=== PATIENT | male | born 1960 | race Caucasian/White ===

== ENCOUNTER 2018-05-08 16:22 | Emergency (ER) | payer BC ==
[2018-05-08 16:48] VITALS: BP 105/83
[2018-05-08] MEDS ORDERED: Sodium Chloride 0.9% 10 ML Syringe FLUSH PRN (17:03)
[2018-05-08] MEDS ORDERED: Diltiazem 50 MG/10 ML SDV IVPUSH ONE (17:03)
--- NOTE | 2018-05-08 17:11 | EDM.PDOC ---
ED HPI GENERAL MEDICAL PROBLEM - General Chief Complaint: Cardiovascular Problem Stated Complaint: AFIB Time Seen by Provider: 05/08/18 16:46 Source of Information: Reports: Patient, RN Notes Reviewed - History of Present Illness INITIAL COMMENTS - FREE TEXT/NARRATIVE: 57-year-old male comes in with symptoms of palpitations, nonspecific dizziness. Tear chest feels very mildly tight. Had this off and on but mostly present for the last 2 days. Family finally convinced him to come in. He has had atrial fib in the past. He has been on metoprolol in addition to his other medications. He also has been on flecainide and his states dosage was recently increased from 100 mg twice a day to 150 mg twice a day. No abdominal pain nausea vomiting. No cough shortness of breath fever or chills. - Related Data Allergies Allergy/AdvReac Type Severity Reaction Status Date / Time No Known Allergies Allergy Verified 11/30/14 10:21 Home Meds: Home Meds Losartan/Hydrochlorothiazide [Losartan-HCTZ 100-25 MG] 25 - 100 mg PO DAILY@ 199911/30/14 [History] atorvaSTATin [Lipitor] 40 mg PO BEDTIME 11/30/14 [History] Burdock Root 1 cap PO DAILY 05/08/18 [History] Cholecalciferol (Vitamin D3) [Vitamin D3] 1,000 unit PO DAILY 05/08/18 [History] Flecainide [Tambocor] 100 mg PO BID 05/08/18 [History] Metoprolol Succinate [Toprol XL] 50 mg PO DAILY 05/08/18 [History] Multivitamin [Daily Brenda] 1 tab PO DAILY 05/08/18 [History] Ranitidine HCl [Ranitidine] 300 mg PO DAILY 05/08/18 [History] Past Medical History Cardiovascular History: Reports: Afib Other Respiratory History: pt uses C-pap - Past Surgical History Other Respiratory Surgeries/Procedures: per pt had steel plate placed in the neck 2004 Social & Family History - Tobacco Use Smoking Status *Q: Never Smoker Second Hand Smoke Exposure: No - Caffeine Use Caffeine Use: Reports: Coffee, Soda - Recreational Drug Use Recreational Drug Use: No ED ROS GENERAL - Review of Systems Review Of Systems: See Below Constitutional: Denies: Fever, Chills, Diaphoresis HEENT: Denies: Rhinitis, Sinus Problem, Throat Pain Respiratory: Reports: Cough. Denies: Shortness of Breath, Wheezing, Pleuritic Chest Pain Cardiovascular: Reports: Lightheadedness, Palpitations. Denies: Chest Pain ( Occasional), Syncope (Occasional mild) Endocrine: Reports: Fatigue GI/Abdominal: Denies: Abdominal Pain, Nausea, Vomiting Musculoskeletal: Denies: Neck Pain, Shoulder Pain, Arm Pain Skin: Reports: No Symptoms Neurological: Reports: Dizziness ED EXAM, GENERAL - Physical Exam Exam: See Below General Appearance: Alert, No Apparent Distress Eye Exam: Bilateral Eye: PERRL Throat/Mouth: Normal Inspection, Normal Oropharynx Head: Atraumatic Neck: Supple, Full Range of Motion Respiratory/Chest: No Respiratory Distress, Lungs Clear, Normal Breath Sounds. No: Rales, Rhonchi, Wheezing Cardiovascular: Tachycardia, Irregularly Irregular GI/Abdominal: Soft, Non-Tender Back Exam: No: CVA Tenderness (L), CVA Tenderness (R) Extremities: Normal Inspection. No: Pedal Edema, Leg Pain, Increased Warmth, Redness Neurological: Alert, Oriented, No Motor/Sensory Deficits Skin Exam: Warm, Dry EKG INTERPRETATION EKG Date: 05/08/18 Rhythm: A-Flutter [place]: Normal QRS: Normal ST-T: Depressed Course - Vital Signs Last Recorded V/S: Last Vital Signs Temp 97.9 F 05/08/18 16:41 Pulse 131 H 05/08/18 16:41 Resp 18 05/08/18 16:41 BP 105/83 05/08/18 16:41 Pulse Ox 96 05/08/18 16:41 - Orders/Labs/Meds Orders: Active Orders 24 hr Category Date Time Status EKG 12 Lead [EKG Documentation Completion] [RC] STAT Care 05/08/18 17:02 Active Peripheral IV Care [RC] . DIRECTED Care 05/08/18 17:03 Active Chest 1V Frontal [CR] Stat Exams 05/08/18 17:02 Taken Sodium Chloride 0.9% [Saline Flush] Med 05/08/18 17:03 Active 10 ml FLUSH ASDIRECTED PRN Peripheral IV Insertion Adult [OM.PC] Stat Oth 05/08/18 17:02 Ordered Medication Orders Sodium Chloride (Saline Flush) 10 ml FLUSH ASDIRECTED PRN PRN Reason: Keep Vein Open Last Admin: 12/27/18 17:00 Dose: 10 ml Labs: Laboratory Tests 05/08/18 05/08/18 Range/Units 17:00 17:00 WBC 8.04 (4.23-9.07) K/mm3 RBC 4.89 (4.63-6.08) M/mm3 Hgb 13.9 (13.7-17.5) gm/L Hct 41.7 (40.1-51.0) % MCV 85.3 (79.0-92.2) fl MCH 28.4 (25.7-32.2) pg MCHC 33.3 (32.2-35.5) g/dl RDW Std Deviation 41.3 (35.1-43.9) fL Plt Count 213 (163-337) K/mm3 MPV 10.7 (9.4-12.3) fl Neut % (Auto) 37.0 (34.0-67.9) % Lymph % (Auto) 52.4 (21.8-53.1) % [place] % (Auto) 8.6 (5.3-12.2) % Eos % (Auto) 1.7 (0.8-7.0) Baso % (Auto) 0.2 (0.1-1.2) % Neut # (Auto) 2.97 (1.78-5.38) K/mm3 Lymph # (Auto) 4.21 H (1.32-3.57) K/mm3 [place] # (Auto) 0.69 (0.30-0.82) K/mm3 Eos # (Auto) 0.14 (0.04-0.54) K/mm3 Baso # (Auto) 0.02 (0.01-0.08) K/mm3 Sodium 141 (136-145) mEq/L Potassium 3.8 (3.5-5.1) mEq/L Chloride 106 (98-107) mEq/L Carbon Dioxide 27 (21-32) mEq/L Anion Gap 11.8 (5-15) BUN 20 H (7-18) mg/dL Creatinine 1.2 (0.7-1.3) mg/dL Est Cr Clr Drug Dosing 70.59 mL/min Estimated GFR (MDRD) > 60 (>60) mL/min BUN/Creatinine Ratio 16.7 (14-18) Glucose 103 (74-106) mg/dL Calcium 8.5 (8.5-10.1) mg/dL Total Bilirubin 0.3 (0.2-1.0) mg/dL AST 28 (15-37) U/L ALT 49 (16-63) U/L Alkaline Phosphatase 49 (46-116) U/L Troponin I < 0.017 (0.00-0.056) ng/mL Total Protein 6.8 (6.4-8.2) g/dl Albumin 3.8 (3.4-5.0) g/dl Globulin 3.0 gm/dL Albumin/Globulin Ratio 1.3 (1-2) Meds: Medications Generic Name Dose Route Start Last Admin Trade Name Freq PRN Reason Stop Dose Admin Sodium Chloride 10 ml 05/08/18 17:03 05/08/18 17:00 Saline Flush FLUSH 10 ml ASDIRECTED PRN Administration Keep Vein Open Discontinued Medications Generic Name Dose Route Start Last Admin Trade Name Freq PRN Reason Stop Dose Admin Diltiazem HCl 20 mg 05/08/18 17:03 05/08/18 17:38 Cardizem IVPUSH 05/08/18 17:04 20 mg ONETIME ONE Administration - Re-Assessments/Exams Free Text/Narrative Re-Assessment/Exam: 05/08/18 19:21 Patient as noted presented with atrial flutter heart rate running 110 to 130 on arrival to ED. We did give diltiazem 10 mg IV load by a second 10 mg dose IV. Review his heart rate initially down to the 90s and then to the 60s with now what looks like a 4-1 conduction compared to the 2-1 up to 4-1 conduction on arrival. He is been in the 60s now for about the last hour. I did consult with Dr. Hagen, sign maker on-call for [facility]. He inquired if patient had artery taken day or he usually takes it in the evening. It turns out that he does usually take it in the evening. He recommends that the patient did take the evening metoprolol 50 mg as previously prescribed and then take the increased dose of flecainide 150 mg as recommended earlier today. A new taking the flexed denied 150 mg twice a day. He agrees that follow-up at the cardiology clinic tomorrow would be appropriate. Patient or his will call in the morning to see if they can get an appointment. If he cannot get into the Cardiology clinic tomorrow I am recommending follow-up at our [facility] and if that does not work I'm recommending follow-up here in the ED. Discharge instructions as documented. Departure - Departure Time of Disposition: 19:13 Disposition: Home, Self-Care 01 Condition: Fair Clinical Impression: Atrial flutter Qualifiers: Atrial flutter type: unspecified Qualified Code(s): I48.92 - Unspecified atrial flutter Instructions: Atrial Flutter Referrals: Celso Hoyos PA-C [Primary Care Provider] - Forms: ED Department Discharge Additional Instructions: Rest, drink plenty of water to maintain hydration, when you get home take the 50 mg metoprolol that you have been prescribed. Also take the flecainide at the increased dose of 150 mg as recommended by cardiology earlier today and verified with my conversation with Linux Administrator assistant operations manager this evening. Call Wei tomorrow morning and see if you can get in to see Dr. Cross or one of the other providers at the [facility] clinic. Otherwise try see one of our providers at our [facility]. If that does not work out return to ED for recheck. Return to ED if symptoms worsening in any way. - My Orders Last 24 Hours: My Active Orders 05/08/18 17:02 EKG 12 Lead [EKG Documentation Completion] [RC] STAT Chest 1V Frontal [CR] Stat Peripheral IV Insertion Adult [OM.PC] Stat 05/08/18 17:03 Peripheral IV Care [RC] . DIRECTED Sodium Chloride 0.9% [Saline Flush] 10 ml FLUSH ASDIRECTED PRN - Assessment/Plan Last 24 Hours: My Active Orders 05/08/18 17:02 EKG 12 Lead [EKG Documentation Completion] [RC] STAT Chest 1V Frontal [CR] Stat Peripheral IV Insertion Adult [OM.PC] Stat 05/08/18 17:03 Peripheral IV Care [RC] . DIRECTED Sodium Chloride 0.9% [Saline Flush] 10 ml FLUSH ASDIRECTED PRN
--- NOTE | 2018-05-09 08:38 | CR ---
Chest: Frontal view of the chest was obtained utilizing portable technique. Comparison: Prior chest x-ray of 07/10/16. Heart size and mediastinum are within normal limits. Lungs are clear without acute parenchymal change. Previous cervical spine surgery is noted. Impression: 1. Nothing acute is appreciated on portable chest x-ray. Diagnostic code #2
== END 2018-05-08 19:28 | disposition home or self-care (01) ==
LOC: JD.ED 16:22
DX: I48.92 Unspecified atrial flutter (principal); Z79.899 Other long term (current) drug therapy
CPT/HCPCS: 36415; 71045; 80053; 84484; 85025; 93005; 96374; 99285; J3490

== ENCOUNTER 2018-05-11 09:12 | Emergency (ER) | payer BC ==
[2018-05-11] MEDS ORDERED: Diltiazem 50 MG/10 ML SDV IVPUSH ONE ×2 (09:36→10:23)
--- NOTE | 2018-05-11 09:37 | EDM.PDOC ---
ED HPI GENERAL MEDICAL PROBLEM - General Chief Complaint: Cardiovascular Problem Stated Complaint: FAST HEART RATE Time Seen by Provider: 05/11/18 09:36 Source of Information: Reports: Patient History Limitations: Reports: No Limitations - History of Present Illness INITIAL COMMENTS - FREE TEXT/NARRATIVE: 57-year-old male presents the ED with not feeling well. He tested his blood pressure and found his heart rate to be well over 130 this morning. Patient was seen here May 08 with similar occurrence. He was treated as an outpatient with Cardizem IV after his heart rate was controlled. Dosage of flecainide was increased from 100 twice a day 2050 mg twice a day. He did see the police and fire dispatcher whom I believe is Dr. Gu/Dr Summers police and fire dispatcher (s) in [place] on Saturday morning i.e. May 09. Line is for him to be seen tomorrow for a transesophageal echocardiogram to make sure there is no clot in the atria. He was started on Xarelto 2 days ago as well. Plan will be to pursue an attempt at cardioversion. Ablation and electrophysiologic studies could be done within the next month. He feels perhaps slightly more short of breath. Just generally weak. No headache no chest pain. Cough or sputum production. She did not sleep very well last night suggesting heart rate was up quite a bit during the night. Of note his metoprolol dose was cut in half as well. Onset: Gradual Onset Date: 05/10/18 Duration: Hour(s): (Has not felt well since yesterday before going to bed), Constant Location: Reports: Chest, Generalized ([place]oli sense of weakness. Mild shortness of breath.) Quality: Reports: Other (Mild dyspnea) Severity: Mild Improves with: Reports: Rest Worsens with: Reports: Movement Context: Denies: Activity, Exercise (CC little worse with movement), Lifting, Sick Contact, Trauma Associated Symptoms: Reports: Shortness of Breath, Weakness. Denies: No Other Symptoms, Confusion, Chest Pain, Cough, cough w sputum, Diaphoresis, Fever/ Chills, Headaches, Loss of Appetite, Malaise, Nausea/Vomiting, Rash, Seizure, Syncope Treatments [employer]: Reports: Other (see below) - Related Data Allergies Allergy/AdvReac Type Severity Reaction Status Date / Time No Known Allergies Allergy Verified 05/11/18 09:23 Home Meds: Home Meds Losartan/Hydrochlorothiazide [Losartan-HCTZ 100-25 MG] 25 - 100 mg PO DAILY@ 199911/30/14 [History] atorvaSTATin [Lipitor] 40 mg PO BEDTIME 11/30/14 [History] [place]dock Root 1 cap PO DAILY 05/08/18 [History] Cholecalciferol (Vitamin D3) [Vitamin D3] 1,000 unit PO DAILY 05/08/18 [History] Flecainide [Tambocor] 100 mg PO BID 05/08/18 [History] Metoprolol Succinate [Toprol XL] 50 mg PO DAILY 05/08/18 [History] Multivitamin [Daily Brenda] 1 tab PO DAILY 05/08/18 [History] Ranitidine HCl [Ranitidine] 300 mg PO DAILY 05/08/18 [History] Past Medical History Cardiovascular History: Reports: Afib Respiratory History: Reports: Other (See Below) Other Respiratory History: pt uses C-pap - Past Surgical History Other Respiratory Surgeries/Procedures: per pt had steel plate placed in the neck 2004 Social & Family History - Caffeine Use Caffeine Use: Reports: Coffee, Soda - Living Situation & Occupation Living situation: Reports: Occupation: Employed ED ROS GENERAL - Review of Systems Review Of Systems: See Below Constitutional: Denies: Fever, Chills, Malaise, Weakness, Fatigue HEENT: Reports: No Symptoms Respiratory: Reports: Shortness of Breath. Denies: Wheezing, Pleuritic Chest Pain (Very mild dyspnea), Cough Cardiovascular: Reports: Dyspnea on Exertion, Lightheadedness. Denies: Chest Pain, Blood Pressure Problem, Claudication, Edema, Orthopnea, Palpitations Endocrine: Reports: Fatigue (He is not aware of the palpitations.) GI/Abdominal: Reports: Decreased Appetite : Reports: Frequency Musculoskeletal: Reports: Joint Pain Skin: Reports: No Symptoms (Has some joint pain knees hips low back at times) Neurological: Reports: No Symptoms Psychiatric: Reports: No Symptoms Hematologic/Lymphatic: Reports: No Symptoms Immunologic: Reports: No Symptoms ED EXAM, GENERAL - Physical Exam Exam: See Below Exam Limited By: No Limitations General Appearance: Alert, WD/WN, No Apparent Distress, Other (Vital signs are well maintained.) Eye Exam: Bilateral Eye: Normal Inspection Throat/Mouth: Normal Inspection, Normal Lips, Normal Oropharynx Head: Atraumatic, Normocephalic Neck: Normal Inspection, Supple, Non-Tender, Full Range of Motion. No: Carotid Bruit, Lymphadenopathy (L), Lymphadenopathy (R) Respiratory/Chest: No Respiratory Distress, Lungs Clear, Normal Breath Sounds, No Accessory Muscle Use, Chest Non-Tender Cardiovascular: No Edema (Monitor shows atrial flutter with a rate anywhere between 90 and 1 50/m.), No Gallop, No Murmur, No Rub, Tachycardia, Irregularly Irregular. No: Regular Rate, Rhythm Peripheral Pulses: 2+: Posterior Tibial (L) (Pulses are very weak.), Posterior Tibial (R), Dorsalis Pedis (L), Dorsalis Pedis (R) GI/Abdominal: Normal Bowel Sounds, Soft, Non-Tender, No Organomegaly Extremities: Normal Inspection, Normal Range of Motion, Non-Tender, No Pedal Edema Neurological: Alert, Oriented, CN II-XII Intact, Normal Cognition Psychiatric: Normal Affect, Normal Mood Skin Exam: Warm, Dry, Intact, Normal Color Lymphatic: No Adenopathy EKG INTERPRETATION EKG Date: 05/11/18 Time: :18 Rhythm: A-Flutter (With a rate of 58-1 22/m. Block is variable anywhere from 2-1 -5-1.) Rate (Beats/Min): 101 [place]: Normal P-Wave: Absent ST-T: Other (There is ST segment depression in V3 to V6. Also noticed slightly in V1 and aVL.) QT: Normal EKG Interpretation Comments: Abnormal ECG Course - Vital Signs Last Recorded V/S: Last Vital Signs Temp 36.6 C 05/11/18 09:19 Pulse 86 05/11/18 12:12 Resp 18 05/11/18 09:19 BP 118/72 05/11/18 12:12 Pulse Ox 95 05/11/18 09:19 - Orders/Labs/Meds Orders: Active Orders 24 hr Category Date Time Status EKG Documentation Completion [RC] ASDIRECTED Care 05/11/18 09:25 Active EKG Documentation Completion [RC] STAT Care 05/11/18 09:38 Inactive EKG 12 Lead [EK] Stat Ther 05/11/18 09:25 Ordered Labs: Laboratory Tests 05/11/18 05/11/18 05/11/18 Range/Units 09:28 09:28 09:28 WBC 6.88 (4.23-9.07) K/mm3 RBC 5.33 (4.63-6.08) M/mm3 Hgb 14.9 (13.7-17.5) gm/L Hct 44.9 (40.1-51.0) % MCV 84.2 (79.0-92.2) fl MCH 28.0 (25.7-32.2) pg MCHC 33.2 (32.2-35.5) g/dl RDW Std Deviation 40.9 (35.1-43.9) fL Plt Count 211 (163-337) K/mm3 MPV 10.8 (9.4-12.3) fl Neutrophils % (Manual) 49 (40-60) % Band Neutrophils % 0 (0-10) % Lymphocytes % (Manual) 44 H (20-40) % Atypical Lymphs % 0 % Monocytes % (Manual) 5 (2-10) % Eosinophils % (Manual) 2 (0.8-7.0) % Basophils % (Manual) 0 L (0.2-1.2) Platelet Estimate Adequate Plt Morphology Comment Normal RBC Morph Comment Normal Sodium 141 (136-145) mEq/L Potassium 3.7 (3.5-5.1) mEq/L Chloride 104 (98-107) mEq/L Carbon Dioxide 24 (21-32) mEq/L Anion Gap 16.7 H (5-15) BUN 23 H (7-18) mg/dL Creatinine 1.2 (0.7-1.3) mg/dL Est Cr Clr Drug Dosing 70.59 mL/min Estimated GFR (MDRD) > 60 (>60) mL/min BUN/Creatinine Ratio 19.2 H (14-18) Glucose 190 H (74-106) mg/dL Calcium 9.4 (8.5-10.1) mg/dL Magnesium 1.4 L (1.8-2.4) mg/dl Total Bilirubin 0.5 (0.2-1.0) mg/dL AST 20 (15-37) U/L ALT 45 (16-63) U/L Alkaline Phosphatase 46 (46-116) U/L CK-MB (CK-2) 2.7 (0-3.6) ng/ml Troponin I < 0.017 (0.00-0.056) ng/mL NT-Pro-B Natriuret Pep 68 (0-125) pg/mL Total Protein 7.3 (6.4-8.2) g/dl Albumin 3.9 (3.4-5.0) g/dl Globulin 3.4 gm/dL Albumin/Globulin Ratio 1.2 (1-2) TSH 3rd Generation 3.492 (0.358-3.74) uIU/mL Meds: Medications Discontinued Medications Generic Name Dose Route Start Last Admin Trade Name Freq PRN Reason Stop Dose Admin Diltiazem HCl 5 mg 05/11/18 09:36 05/11/18 09:42 Cardizem IVPUSH 05/11/18 09:37 5 mg ONETIME ONE Administration Diltiazem HCl 10 mg 05/11/18 10:23 05/11/18 10:34 Cardizem IVPUSH 05/11/18 10:24 10 mg ONETIME ONE Administration Diltiazem HCl 120 mg 05/11/18 11:57 05/11/18 12:12 Cardizem Cd PO 05/11/18 11:58 120 mg ONETIME ONE Administration Sodium Chloride 1,000 mls @ 75 mls/hr 05/11/18 09:45 05/11/18 09:42 Normal Saline IV 75 mls/hr ASDIRECTED THUY Administration Magnesium Sulfate 4 gm/ Premix 100 mls @ 25 mls/hr 05/11/18 10:26 05/11/18 10 :35 IV 05/11/18 10:27 25 mls/hr ONETIME ONE Administration - Radiology Interpretation Free Text/Narrative:: 57-year-old male presents to the ED with chronic atrial flutter with increased rate this morning. He was down at 60/m when he seen the police and fire dispatcher 2 days ago after being seen here with an increased dose of his flecainide from 100-150 twice a day. Log Cooker did reduce his dose of metoprolol from 50 mg once a day to 25 mg once daily. Patient just generally doesn't feel well. States he is mildly short of breath and weak and a little dizzy. ECG shows atrial flutter with variable conduction block of 2-125-1. Rate is anywhere from 58-1 22/m. He has mild ST segment depression in V3 to V6. This is complicated by a left bundle branch block pattern. Plan: IV normal saline 75 mils per hour. Will give diltiazem 5 mg IV bolus and see what response we get. Routine labs to be done including a TSH and a serum magnesium level and a BMP with one portable chest x- ray to be done. - Re-Assessments/Exams Free Text/Narrative Re-Assessment/Exam: 05/11/18 10:27 Labs have returned. Normal white count at 6.88 with 49% neutrophils no bands cells reported. 44% lymphocytes I mild right shift. Hemoglobin 14.9 with hematocrit of 44.9. Platelet count 211,000. Sodium 141 with potassium of 3.7. Chloride 104 bicarbonate 24. And a gap is mildly elevated at 16.7. BUN is mildly elevated at 23. Creatinine is 1.2. GFR is greater than 60. Glucose is 190. Calcium is 9.4. Magnesium is low at 1.4. Total bilirubin 0.5. AST is 20 with a nail to 45. Alk phosphatase 46. CK-MB fraction is 2.7. Troponin I is less than 0.017. BNP is normal at 68. TSH is also normal at 3.49. Total protein is 7.3 within albumin fraction of 3.9. Free Text/Narrative Re-Assessment/Exam: 05/11/18 11:57 rate is controlled at 74/m. BP is 101/71. I did therefore speak with Dr. Cross police and fire dispatcher in [place] was web application tester and he agrees with a low dose oral diltiazem 120 mg CD to get him through until tomorrow until he can follow with Dr. Gu and Dr. Summers. 05/11/18 12:46 patient has completed his 4 g of magnesium sulfate. Current heart rate is 68-70 remains in atrial flutter of course. BP is 121/74. He will therefore be discharged to home. He has follow-up appointment with cardiology services at [facility] tomorrow morning. Departure - Departure Time of Disposition: 12:47 Disposition: Home, Self-Care 01 Condition: Fair Clinical Impression: Atrial flutter with rapid ventricular response, Hypomagnesemia Instructions: Atrial Flutter Referrals: Celso Hoyos PA-C [Primary Care Provider] - Forms: ED Department Discharge Additional Instructions: Evaluation in the emergency department this morning due to persistent atrial flutter with rapid ventricular rate. Recent changes to medications i.e. increased dose of flow cannot from 100-150 twice a day has not been able to control the rate well. Reduction in your metoprolol may be playing a role as well. In the emergency room you're treated with initially 5 mg of diltiazem IV which did bring the rate down into the 90s. However when he stood up the rate did shoot up into the 130s. He was also treated with another 10 mg of intravenous diltiazem. Heart rate as stated in the 70s for the most part. Identified that your magnesium level was quite low on blood tests. Therefore he received 4 g of magnesium sulfate intravenously while in the ED. I did speak with Dr. Cross camera repair technician/police and fire dispatcher at [facility] who is on-call today. He agreed with me giving you Cardizem 120 mg CD which is a long-acting preparation of Cardizem. Hopefully this will provide rate control at 120 or less until follow-up with cardiology tomorrow morning. - My Orders Last 24 Hours: My Active Orders 05/11/18 09:25 EKG Documentation Completion [RC] ASDIRECTED EKG 12 Lead [EK] Stat 05/11/18 09:38 EKG Documentation Completion [RC] STAT - Assessment/Plan Last 24 Hours: My Active Orders 05/11/18 09:25 EKG Documentation Completion [RC] ASDIRECTED EKG 12 Lead [EK] Stat 05/11/18 09:38 EKG Documentation Completion [RC] STAT
[2018-05-11] MEDS ORDERED: Sodium Chloride 0.9% 1,000 ML IV SCH (09:45)
[2018-05-11] MEDS ORDERED: Magnesium Sulfate/Water 4 GM in Premix Bag 1 BAG IV ONE (10:26)
[2018-05-11] MEDS ORDERED: Diltiazem 120 MG Cap.CD PO ONE (11:57)
[2018-05-11 12:13] VITALS: BP 118/72
--- NOTE | 2018-05-11 13:53 | CR ---
Chest: Portable view of the chest was obtained. Comparison: Prior chest x-ray of 05/08/18. Heart size is normal. Upper mediastinum is within normal limits. Lungs are clear. Previous cervical spine surgery is noted. Impression: 1. Nothing acute is seen on portable chest x-ray. Diagnostic code #2
== END 2018-05-11 13:15 | disposition home or self-care (01) ==
LOC: JD.ED 09:12
DX: I48.92 Unspecified atrial flutter (principal); E83.42 Hypomagnesemia; I48.91 Unspecified atrial fibrillation
CPT/HCPCS: 36415; 71045; 80053; 82553; 83735; 83880; 84443; 84484; 85007; 85027; 93005; 96361; 96365; 96366; 96375; 96376; 99285; A9270; J3475; J3490; J7040

== ENCOUNTER 2018-07-29 14:47 | Emergency (ER) | payer BC, OTHER ==
[2018-07-29 14:58] VITALS: BP 153/91
[2018-07-29] MEDS ORDERED: Diphtheria,Pertussis(Acell),Tetanus Vaccine 0.5 ML Syringe IM ONE (15:37)
--- NOTE | 2018-07-29 15:47 | EDM.PDOC ---
<Rosalba Schaefer - Last Filed: 07/29/18 15:51> ED HPI GENERAL MEDICAL PROBLEM - General Chief Complaint: Laceration Stated Complaint: R HAND INJURY Time Seen by Provider: 07/29/18 15:03 - History of Present Illness INITIAL COMMENTS - FREE TEXT/NARRATIVE: 58-year-old male patient presents to the ER after slipping and landing on a piece of wood with a jose nail sticking out. Patient stated he was throwing wood into the dumpster and slipped landing on the nail. He was able to pull the nail out and it did bleed afterwards. Patient is concerned because he has not had a tetanus in a long time and knows that he needs one. He did go to the clinic and they sent him here for evaluation. Will give him a tetanus and antibiotics to cover the puncture wound. Onset: Today Onset Date: 07/29/18 Duration: Hour(s): - Related Data Allergies Allergy/AdvReac Type Severity Reaction Status Date / Time No Known Allergies Allergy Verified 07/29/18 14:57 Home Meds: Home Meds Losartan/Hydrochlorothiazide [Losartan-HCTZ 100-25 MG] 25 - 100 mg PO DAILY@ 199911/30/14 [History] atorvaSTATin [Lipitor] 40 mg PO BEDTIME 11/30/14 [History] Burdock Root 1 cap PO DAILY 05/08/18 [History] Cholecalciferol (Vitamin D3) [Vitamin D3] 1,000 unit PO DAILY 05/08/18 [History] Flecainide [Tambocor] 100 mg PO BID 05/08/18 [History] Metoprolol Succinate [Toprol XL] 50 mg PO DAILY 05/08/18 [History] Multivitamin [Daily Brenda] 1 tab PO DAILY 05/08/18 [History] Ranitidine HCl [Ranitidine] 300 mg PO DAILY 05/08/18 [History] ED ROS GENERAL - Review of Systems Constitutional: Reports: No Symptoms HEENT: Reports: No Symptoms Respiratory: Reports: No Symptoms Cardiovascular: Reports: No Symptoms Endocrine: Reports: No Symptoms GI/Abdominal: Reports: No Symptoms : Reports: No Symptoms Musculoskeletal: Reports: No Symptoms Skin: Reports: Wound (right hand medial loja surface puncture) Neurological: Reports: No Symptoms Psychiatric: Reports: No Symptoms Hematologic/Lymphatic: Reports: No Symptoms Immunologic: Reports: No Symptoms ED EXAM, SKIN/RASH Exam: See Below Exam Limited By: No Limitations General Appearance: Alert, WD/WN, No Apparent Distress Eye Exam: Bilateral Eye: EOMI, Normal Inspection, PERRL Ears: Normal External Exam Nose: Normal Inspection, Normal Mucosa, No Blood Throat/Mouth: Normal Inspection, Normal Lips, Normal Teeth Head: Atraumatic, Normocephalic Neck: Normal Inspection, Supple, Non-Tender Peripheral Pulses: 2+: Radial (L), Radial (R) Extremities: Normal Inspection, Normal Range of Motion, Non-Tender (except right hand medial loja area) Neurological: Alert, Oriented, CN II-XII Intact, Normal Cognition, Normal Gait, No Motor/Sensory Deficits Psychiatric: Normal Affect, Normal Mood Skin: Warm, Dry, Intact, Normal Color, No Rash Location, Skin: Palms (right palm puncture) Lymphatic: No Adenopathy Course - Vital Signs Last Recorded V/S: Last Vital Signs Temp 36.9 C 07/29/18 14:56 Pulse 74 07/29/18 14:56 Resp 16 07/29/18 14:56 BP 153/91 H 07/29/18 14:56 Pulse Ox 95 07/29/18 14:56 - Orders/Labs/Meds Orders: Active Orders 24 hr Category Date Time Status Vaccines to be Administered [RC] PER UNIT ROUTINE Care 07/29/18 15:37 Active Meds: Medications Discontinued Medications Generic Name Dose Route Start Last Admin Trade Name Leonelq PRN Reason Stop Dose Admin Diphtheria/Tetanus/Acell Pertussis 0.5 ml 07/29/18 15:37 07/29/18 15:46 Adacel IM 07/29/18 15:38 0.5 ml .ONCE ONE Administration Departure - Departure Disposition: Home, Self-Care 01 Clinical Impression: Puncture wound, hand Qualifiers: Encounter type: initial encounter Foreign body presence: without foreign body Laterality: right Qualified Code(s): S61.431A - Puncture wound without foreign body of right hand, initial encounter - Discharge Information Instructions: Puncture Wound, [id number] Referrals: Celso Hoyos PA-C [Primary Care Provider] - Forms: ED Department Discharge Additional Instructions: Evaluation in the emergency room today in regards to nail puncture wound to the palmar aspect of your right hand. A work-related injury. Tetanus toxoid was updated today as well as diphtheria and pertussis. These are good for 10 years. You will need to be on antibiotic doxycycline 100 mg twice daily for the next 10 days to prevent secondary wound infection. Cleanse the wound daily with soap and water. Then apply topical antibiotic ointment such as bacitracin or Polysporin to the wound and cover with a Band-Aid for about 3 days. 600 mg every 6 hours if needed for pain relief. <Gamaliel Grimes - Last Filed: 07/29/18 19:52> ED HPI GENERAL MEDICAL PROBLEM - General Source of Information: Reports: Patient History Limitations: Reports: No Limitations Past Medical History Cardiovascular History: Reports: Afib Respiratory History: Reports: Other (See Below) Other Respiratory History: pt uses C-pap - Past Surgical History Cardiovascular Surgical History: Reports: Cardiac Ablation Other Respiratory Surgeries/Procedures: per pt had steel plate placed in the neck 2004 Social & Family History - Tobacco Use Smoking Status *Q: Never Smoker Second Hand Smoke Exposure: No - Caffeine Use Caffeine Use: Reports: Coffee - Recreational Drug Use Recreational Drug Use: No - Living Situation & Occupation Living situation: Reports: Occupation: Employed ED ROS GENERAL - Review of Systems Review Of Systems: See Below ED EXAM, SKIN/RASH Exam: See Below Course - Radiology Interpretation Free Text/Narrative:: 58-year-old male presents to the ED with a puncture wound to the hyperthenar eminence of his right hand. This occurred as he was carrying wood with nails in it to the dumpster. He slipped on the ice and one on the nails pierced the hyperthenar eminence of his right hand but it did not go all the way through. Examination reveals some localized swelling at the puncture wound site. He came to the ED primarily to seek out a tetanus diphtheria and pertussis vaccine up to date which will be provided. However advised that he also will be placed on Doxycycline 100 mg twice daily for 10 days to prevent secondary wound infection. Patient was seen and examined and treated by me in concert with PA student Mihaela Alfaro. Departure - Departure Time of Disposition: 15:44 Condition: Fair - Discharge Information *PRESCRIPTION DRUG MONITORING PROGRAM REVIEWED*: Not Applicable *COPY OF PRESCRIPTION DRUG MONITORING REPORT IN PATIENT RAYRAY: Not Applicable
== END 2018-07-29 16:00 | disposition home or self-care (01) ==
LOC: JD.ED 14:47
DX: S61.431A Puncture wound without foreign body of right hand, initial encounter (principal); Z23 Encounter for immunization; Z79.899 Other long term (current) drug therapy; W00.0XXA Fall on same level due to ice and snow, initial encounter
CPT/HCPCS: 90471; 90700; 99283

== ENCOUNTER 2020-11-02 02:00 | Emergency (ER) | payer BC ==
[2020-11-02 02:15] VITALS: BP 176/88; PULSE 87
[2020-11-02] MEDS ORDERED: Ondansetron 4 MG Tab.DIS PO ONE (02:24)
[2020-11-02] MEDS ORDERED: Ondansetron 4 MG/2 ML SDV ONE (02:28)
[2020-11-02] MEDS ORDERED: Ondansetron 4 MG/2 ML SDV IVPUSH ONE (02:29)
[2020-11-02] MEDS ORDERED: Sodium Chloride 0.9% 1,000 ML IV SCH (02:30)
--- NOTE | 2020-11-02 03:50 | EDM.PDOC ---
ED HPI GENERAL MEDICAL PROBLEM - General Chief Complaint: Abdominal Pain Stated Complaint: SIDE PAIN Time Seen by Provider: 11/02/20 03:23 Source of Information: Reports: Patient, Family () History Limitations: Reports: No Limitations - History of Present Illness INITIAL COMMENTS - FREE TEXT/NARRATIVE: Mr. Colin is a very pleasant 60-year-old gentleman who now presents the ED stating that he was woken around midnight tonight with right lower quadrant abdominal pain that initially radiated through to his lower back, and also to his scrotum. The pain got progressively worse, and he developed nausea and vomiting. He describes the pain as crampy and achy. He did not identify any modifiers. His pain quickly resolved just after IV fluid and IV Zofran were given to him here in the ED, around 02:30. No prior similar symptoms. At triage, the patient's initial BP was found to be elevated 176/88, otherwise, he is hemodynamically stable, afebrile, saturating 100% on room air. At this time, the patient appears to be perfectly comfortable. He states that he has no residual pain. Prior to midnight, the patient denies having a recent fever, chills, sore throat, ear pain, nasal or sinus congestion, cough, dyspnea, chest pain, palpitations, nausea, vomiting, constipation, diarrhea, abdominal pain, urinary symptoms, recent weight gain or weight loss, recent bloody bowel movements or black bowel movements, recent joint aches, headaches, or rashes. The patient's PCP is Dr. Shaquille Mccormack. His EP Gamma Operator is Dr. Dallas Gu. Right Abdominal Pain Score (Numeric/FACES): 10 - Related Data Allergies Allergy/AdvReac Type Severity Reaction Status Date / Time No Known Allergies Allergy Verified 07/29/18 14:57 Home Meds: Home Meds Losartan/Hydrochlorothiazide [Losartan-HCTZ 100-25 MG] 25 - 100 mg PO DAILY@199911/30/14 [History] atorvaSTATin [Lipitor] 40 mg PO BEDTIME 11/30/14 [History] Metoprolol Succinate [Toprol XL] 50 mg PO DAILY 05/08/18 [History] Aspirin [Halfprin] 81 mg PO DAILY 11/02/20 [History] Past Medical History Cardiovascular History: Reports: Afib (resolved after cardiac ablation), High Cholesterol, Hypertension Respiratory History: Reports: Sleep Apnea (nightly CPAP) Gastrointestinal History: Reports: GERD (untreated) Musculoskeletal History: Reports: Osteoarthritis Endocrine/Metabolic History: Reports: Obesity/BMI 30+, Other (See Below) (Prediabetes) - Past Surgical History HEENT Surgical History: Reports: Oral Surgery (dental extractions) Cardiovascular Surgical History: Reports: Cardiac Ablation (for A-fib) Neurological Surgical History: Reports: C-Spine (ACDF 2004), Lumbar Spine (micr odiscectomy) Musculoskeletal Surgical History: Reports: Arthroscopic Knee (left) Social & Family History - Tobacco Use Tobacco Use Status *Q: Former Tobacco User Years of Tobacco use: 42 Packs/Tins Daily: 2 Packs/Tins Daily Comment: Quit 2019 Tobacco Use Comment: Started smoking at 16 yrs old - Caffeine Use Caffeine Use: Reports: Coffee - Alcohol Use Alcohol Use History: Yes Alcohol Use Frequency: Socially (rarely to excess) - Recreational Drug Use Recreational Drug Use: Yes Drug Use in Last 12 Months: No Recreational Drug Type: Reports: Marijuana/Hashish (last smoked 1999), Other (see below) (Numerous drugs when he was younger) - Living Situation & Occupation Living situation: Reports: , with Spouse, with Family (1 18 yr old) Occupation: Employed ([employer]) ED ROS GENERAL - Review of Systems Review Of Systems: Comprehensive ROS is negative, except as noted in HPI. ED EXAM, RENAL/ - Physical Exam Exam: See Below Exam Limited By: No Limitations General Appearance: Alert, WD/WN, No Apparent Distress (states pain resolved before my examination) Eye Exam: Bilateral Eye: EOMI, Normal Inspection Ears: Normal External Exam, Hearing Grossly Normal Nose: Normal Inspection Throat/Mouth: Normal Inspection, Normal Lips, Normal Voice, No Airway Compromise Head: Atraumatic, Normocephalic Neck: Normal Inspection, Full Range of Motion Respiratory/Chest: No Respiratory Distress, Lungs Clear, Normal Breath Sounds, No Accessory Muscle Use Cardiovascular: Normal Peripheral Pulses, Regular Rate, Rhythm, No Edema, No Gallop, No JVD, No Murmur, No Rub GI/Abdominal: Normal Bowel Sounds, Soft, Non-Tender (including the RLQ), No Organomegaly, No Distention, No Abnormal Bruit, No Mass Back Exam: Normal Inspection, Full Range of Motion. No: CVA Tenderness (L), CVA Tenderness (R) Extremities: Normal Inspection, Normal Range of Motion, No Pedal Edema, Normal Capillary Refill Neurological: Alert, Oriented, Normal Cognition, No Motor/Sensory Deficits Psychiatric: Normal Affect Skin Exam: Warm, Dry, Intact, Normal Color, No Rash Course - Vital Signs Last Recorded V/S: Last Vital Signs Temp 36.9 C 11/02/20 02:13 Pulse 87 11/02/20 02:13 Resp 18 11/02/20 02:13 BP 176/88 H 11/02/20 02:13 Pulse Ox 100 11/02/20 02:13 - Orders/Labs/Meds Labs: Laboratory Tests 11/02/20 11/02/20 11/02/20 Range/Units 02:20 02:20 03:26 WBC 10.04 H (4.23-9.07) K/mm3 RBC 5.22 (4.63-6.08) M/mm3 Hgb 15.1 (13.7-17.5) gm/dl Hct 45.6 (40.1-51.0) % MCV 87.4 (79.0-92.2) fl MCH 28.9 (25.7-32.2) pg MCHC 33.1 (32.2-35.5) g/dl RDW Std Deviation 42.4 (35.1-43.9) fL Plt Count 214 (163-337) K/mm3 MPV 11.3 (9.4-12.3) fl Neut % (Auto) 37.9 (34.0-67.9) % Lymph % (Auto) 51.9 (21.8-53.1) % Davie % (Auto) 8.4 (5.3-12.2) % Eos % (Auto) 1.4 (0.8-7.0) Baso % (Auto) 0.3 (0.1-1.2) % Neut # (Auto) 3.81 (1.78-5.38) K/mm3 Lymph # (Auto) 5.21 H (1.32-3.57) K/mm3 Davie # (Auto) 0.84 H (0.30-0.82) K/mm3 Eos # (Auto) 0.14 (0.04-0.54) K/mm3 Baso # (Auto) 0.03 (0.01-0.08) K/mm3 Manual Slide Review Abnormal smear Sodium 145 (136-145) mEq/L Potassium 3.9 (3.5-5.1) mEq/L Chloride 108 H (98-107) mEq/L Carbon Dioxide 22 (21-32) mEq/L Anion Gap 18.9 H (5-15) BUN 23 H (7-18) mg/dL Creatinine 1.5 H (0.7-1.3) mg/dL Est Cr Clr Drug Dosing 54.38 mL/min Estimated GFR (MDRD) 47 (>60) mL/min BUN/Creatinine Ratio 15.3 (14-18) Glucose 131 H (70-99) mg/dL Calcium 8.8 (8.5-10.1) mg/dL Total Bilirubin 0.4 (0.2-1.0) mg/dL AST 27 (15-37) U/L ALT 47 (16-63) U/L Alkaline Phosphatase 54 (46-116) U/L Total Protein 7.6 (6.4-8.2) g/dl Albumin 4.1 (3.4-5.0) g/dl Globulin 3.5 gm/dL Albumin/Globulin Ratio 1.2 (1-2) Urine Color Yellow (Yellow) Urine Appearance Slt cloudy H (Clear) Urine pH 5.5 (5.0-8.0) Ur Specific [place] > or = 1.030 (1.005-1.030) Urine Protein 1+ H (Negative) Urine Glucose (UA) Negative (Negative) Urine Ketones Negative (Negative) Urine Occult Blood 3+ H (Negative) Urine Nitrite Negative (Negative) Urine Bilirubin Negative (Negative) Urine Urobilinogen 0.2 (0.2-1.0) Ur Leukocyte Esterase Negative (Negative) U Hyaline Cast (Auto) 0-5 (0-5) /lpf Urine RBC 50-75 H (0-5) /hpf Urine WBC 0-5 (0-5) /hpf Ur Epithelial Cells Not seen (0-5) /hpf Urine Bacteria Few (FEW) /hpf Urine Mucus Many H (FEW) /hpf Meds: Medications Discontinued Medications Generic Name Dose Route Start Last Admin Trade Name Freq PRN Reason Stop Dose Admin Sodium Chloride 1,000 mls @ 150 mls/hr 11/02/20 02:30 11/02/20 02:35 Normal Saline IV 150 mls/hr ASDIRECTED THUY Administration Ondansetron HCl 4 mg 11/02/20 02:24 11/02/20 02:45 Ondansetron 4 Mg Tab.Dis PO 11/02/20 02:25 Not Given ONETIME ONE Ondansetron HCl 4 mg 11/02/20 02:29 11/02/20 02:35 Ondansetron 4 Mg/2 Ml Sdv IVPUSH 11/02/20 02:30 4 mg ONETIME ONE Administration Ondansetron HCl Confirm 11/02/20 02:28 11/02/20 02:38 Ondansetron 4 Mg/2 Ml Sdv Administered 11/02/20 02:29 Not Given Dose 4 mg .ROUTE .[facility] ONE - Re-Assessments/Exams Free Text/Narrative Re-Assessment/Exam: 11/02/20 03:43 As above, the patient was woken around midnight tonight with crampy/achy right lower quadrant pain that radiated to his right back and progressively got worse, with associated nausea and vomiting. His pain promptly resolved right around the time that he received some IV fluid and IV Zofran here in the ED. At present, his physical exam is unremarkable. A CBC, CMP, and urinalysis were ordered at triage. The patient's CBC is remarkable for mild leukocytosis of 10.04, with the remainder of his CBC being unremarkable. His CMP is remarkable for an anion gap mildly elevated at 18.9, with a bicarbonate normal at 22, a BUN/Cr elevated at 23/1.5, and mild hyperglycemia of 131, with remainder of his CMP being unremarkable. His urinalysis is remarkable for slightly cloudy appearance, 3+ occult blood with 50-75 RBCs, leukocyte esterase negative with 0-5 WBCs, nitrate negative with few bacteria, and no squamous epithelial cells seen. 11/02/20 03:51 Test results discussed with the patient and his . It appears that the patient passed a right ureterolith. I have ordered a urine strainer, and will recommend that he stay adequately hydrated and strain his urine for the next few days, to see if he can capture the stone. If he can, he should take it to Dr. Mccormack to have it evaluated. Departure - Departure Time of Disposition: 03:52 Disposition: Home, Self-Care 01 Condition: Good Clinical Impression: Ureterolithiasis - Discharge Information *PRESCRIPTION DRUG MONITORING PROGRAM REVIEWED*: Not Applicable *COPY OF PRESCRIPTION DRUG MONITORING REPORT IN PATIENT RAYRAY: Not Applicable Instructions: Kidney Stones, [id number] Referrals: Shaquille Urrutia MD [Primary Care Provider] - Dallas Gu [Ordering Only Provider] - Forms: ED Department Discharge Additional Instructions: You were seen in the emergency room after being woken around midnight with right lower abdominal pain radiating to your right back, along with nausea and vomiting. Work-up in the ER included some blood tests and a urinalysis. Your blood work demonstrated mild dysfunction of your kidneys, along with a mildly elevated blood sugar of 131. Your urinalysis found microscopic blood, with no suggestion of a urinary tract infection. Your pain resolved spontaneously around the time you received IV fluid and antinausea medicine. Based on your history, physical exam, and ER tests, your symptoms were almost certainly due to a kidney stone, which you passed. You have been given a urine strainer. We recommend that you stay adequately hydrated (it does not really matter what type of fluid you drink), and strain all of your urine for the next few days, to see if you can capture the stone. It would be very small. If you capture the stone, take it to Dr. Mccormack for analysis. If any other problems, please do not hesitate to return to the ER. Sepsis Event Note (ED) - Evaluation Sepsis Screening Result: No Definite Risk
== END 2020-11-02 04:03 | disposition home or self-care (01) ==
LOC: JD.ED 02:00
DX: N20.1 Calculus of ureter (principal); I48.91 Unspecified atrial fibrillation; E78.00 Pure hypercholesterolemia, unspecified; I10 Essential (primary) hypertension; M19.90 Unspecified osteoarthritis, unspecified site; E66.9 Obesity, unspecified; Z68.36 Body mass index [BMI] 36.0-36.9, adult; Z79.82 Long term (current) use of aspirin; Z79.899 Other long term (current) drug therapy; Z87.891 Personal history of nicotine dependence
CPT/HCPCS: 36415; 80053; 81001; 85025; 96374; 99284; J2405; J7030; 99283

== ENCOUNTER 2020-11-17 09:06 | Emergency (ER) | payer BC ==
[2020-11-17 09:14] VITALS: BP 186/99; PULSE 60
[2020-11-17] MEDS ORDERED: Sodium Chloride 0.9% 1,000 ML IV ONE (09:25)
[2020-11-17] MEDS ORDERED: HYDROmorphone 1 MG/ML Syringe IVPUSH STA ×2 (09:25→09:36)
[2020-11-17] MEDS ORDERED: Ondansetron 4 MG/2 ML SDV IVPUSH ONE (09:25)
[2020-11-17] MEDS ORDERED: Tamsulosin 0.4 MG Cap.ER PO ONE (10:08)
--- NOTE | 2020-11-17 10:10 | EDM.PDOC ---
ED HPI GENERAL MEDICAL PROBLEM - General Chief Complaint: Abdominal Pain Stated Complaint: POSSIBLE KIDNEY STONES Time Seen by Provider: 11/17/20 09:11 Source of Information: Reports: Patient History Limitations: Reports: No Limitations, Other (ED vital signs reveal a temp of 96.8, pulse of 60, respiratory rate of 20, blood pressure 186/99, pulse ox 100% on room air.) - History of Present Illness INITIAL COMMENTS - FREE TEXT/NARRATIVE: 60-year-old male presents to the emergency department with complaints of right lower quadrant abdominal pain that radiates into his scrotum. The patient states that he was at work this morning and felt the need to have a bowel movement. He thought he was going to have diarrhea, he states he was unable to have a bowel movement but then developed severe right lower quadrant abdominal pain. Of note, the patient was seen here in this emergency department on 11/02/2020 and evaluated and found to have a kidney stone on the right side. Rom lopez states that this pain feels similar to how he was feeling when he was last seen and treated in the emergency department. He states that this started at about 8 AM this morning. It is a severe stabbing pain that is constant. Prior to this he denies any recent fever, chills, nausea, vomiting or diarrhea. He denies any shortness of breath or cough or sore throat. He states that immediately after the pain developed he broke out in a cold sweat and felt nauseated however he was only able to dry heave. He does admit that he has not been drinking much water over the course of the last month or so. Right Lower Abdomen Pain Score (Numeric/FACES): 10 - Related Data Allergies Allergy/AdvReac Type Severity Reaction Status Date / Time No Known Allergies Allergy Verified 11/17/20 09:14 Home Meds: Home Meds Losartan/Hydrochlorothiazide [Losartan-HCTZ 100-25 MG] 25 - 100 mg PO DAILY@199911/30/14 [History] atorvaSTATin [Lipitor] 40 mg PO BEDTIME 11/30/14 [History] Metoprolol Succinate [Toprol XL] 50 mg PO DAILY 05/08/18 [History] Aspirin [Halfprin] 81 mg PO DAILY 11/02/20 [History] Acetaminophen/oxyCODONE [Percocet 325-5 MG] 1 each PO Q6H PRN #10 tab 11/17/20 [Rx] Levothyroxine [Synthroid] 50 mcg PO ACBREAKFAST 11/17/20 [History] Tamsulosin HCl [Flomax] 0.4 mg PO DAILY #10 cap.er.24h 11/17/20 [Rx] Topiramate 50 mg PO DAILY 11/17/20 [History] allopurinoL [Zyloprim] 100 mg PO DAILY 11/17/20 [History] Past Medical History Cardiovascular History: Reports: Afib, High Cholesterol, Hypertension Respiratory History: Reports: Sleep Apnea Other Respiratory History: pt uses C-pap Gastrointestinal History: Reports: GERD Genitourinary History: Reports: Renal Calculus Musculoskeletal History: Reports: Osteoarthritis Endocrine/Metabolic History: Reports: Obesity/BMI 30+, Other (See Below) - Past Surgical History HEENT Surgical History: Reports: Oral Surgery Cardiovascular Surgical History: Reports: Cardiac Ablation Neurological Surgical History: Reports: C-Spine, Lumbar Spine Musculoskeletal Surgical History: Reports: Arthroscopic Knee Social & Family History - Tobacco Use Tobacco Use Status *Q: Never Tobacco User - Caffeine Use Caffeine Use: Reports: None - Recreational Drug Use Recreational Drug Use: No - Living Situation & Occupation Living situation: Reports: , with Spouse, with Family (1 18 yr old) Occupation: Employed ([employer]) ED ROS GENERAL - Review of Systems Review Of Systems: Comprehensive ROS is negative, except as noted in HPI. ED EXAM, RENAL/ - Physical Exam Exam: See Below Exam Limited By: No Limitations General Appearance: Alert, WD/WN, Moderate Distress Ears: Normal External Exam, Hearing Grossly Normal Nose: Normal Inspection Throat/Mouth: Normal Inspection, Normal Lips, Normal Voice, No Airway Compromise Head: Atraumatic Neck: Normal Inspection, Supple Respiratory/Chest: No Respiratory Distress, Lungs Clear, Normal Breath Sounds, No Accessory Muscle Use, Chest Non-Tender Cardiovascular: Normal Peripheral Pulses, Regular Rate, Rhythm, No Edema, No Murmur GI/Abdominal: Normal Bowel Sounds, Soft, No Distention, Tender (Right lower quadrant). No: Non-Tender (Male) Exam: Deferred Rectal (Males) Exam: Deferred Back Exam: Normal Inspection, Full Range of Motion, CVA Tenderness (R). No: CVA Tenderness (L) Extremities: Normal Inspection, Normal Range of Motion, Non-Tender, No Pedal Edema Neurological: Alert, Oriented, Normal Cognition Psychiatric: Normal Affect, Normal Mood Skin Exam: Warm, Intact, Normal Color, No Rash, Diaphoretic Lymphatic: No Adenopathy Course - Vital Signs Text/Narrative:: As stated above, the patient developed severe, abrupt right lower quadrant abdominal pain that radiated into his right scrotum. Had associated nausea and dry heaving and diaphoresis. He states he has been unable to void since the pain developed. I suspect that the patient likely has another kidney stone. I have ordered labs to include a CBC, CMP, CRP and a magnesium level. We will obtain a urinalysis with micro and culture if indicated, normal saline 1 L bolus, Zofran for nausea and Dilaudid for the pain. Will obtain a CT abdomen and pelvis without contrast stone protocol to rule out kidney stone. Last Recorded V/S: Last Vital Signs Temp 96.8 F L 11/17/20 09:11 Pulse 60 11/17/20 09:11 Resp 20 11/17/20 09:11 BP 186/99 H 11/17/20 09:11 Pulse Ox 100 11/17/20 09:11 - Orders/Labs/Meds Labs: Laboratory Tests 11/17/20 11/17/20 11/17/20 Range/Units 09:12 09:12 11:22 WBC 9.44 H (4.23-9.07) K/mm3 RBC 5.59 (4.63-6.08) M/mm3 Hgb 15.9 (13.7-17.5) gm/dl Hct 48.3 (40.1-51.0) % MCV 86.4 (79.0-92.2) fl MCH 28.4 (25.7-32.2) pg MCHC 32.9 (32.2-35.5) g/dl RDW Std Deviation 42.1 (35.1-43.9) fL Plt Count 208 (163-337) K/mm3 MPV 11.2 (9.4-12.3) fl Neut % (Auto) 36.6 (34.0-67.9) % Lymph % (Auto) 52.4 (21.8-53.1) % [place] % (Auto) 8.9 (5.3-12.2) % Eos % (Auto) 1.8 (0.8-7.0) Baso % (Auto) 0.2 (0.1-1.2) % Neut # (Auto) 3.45 (1.78-5.38) K/mm3 Lymph # (Auto) 4.95 H (1.32-3.57) K/mm3 [place] # (Auto) 0.84 H (0.30-0.82) K/mm3 Eos # (Auto) 0.17 (0.04-0.54) K/mm3 Baso # (Auto) 0.02 (0.01-0.08) K/mm3 Sodium 148 H (136-145) mEq/L Potassium 4.0 (3.5-5.1) mEq/L Chloride 109 H (98-107) mEq/L Carbon Dioxide 25 (21-32) mEq/L Anion Gap 18.0 H (5-15) BUN 19 H (7-18) mg/dL Creatinine 1.5 H (0.7-1.3) mg/dL Est Cr Clr Drug Dosing 54.38 mL/min Estimated GFR (MDRD) 47 (>60) mL/min BUN/Creatinine Ratio 12.7 L (14-18) Glucose 122 H (70-99) mg/dL Calcium 8.9 (8.5-10.1) mg/dL Magnesium 1.9 (1.8-2.4) mg/dL Total Bilirubin 0.5 (0.2-1.0) mg/dL AST 31 (15-37) U/L ALT 56 (16-63) U/L Alkaline Phosphatase 51 (46-116) U/L C-Reactive Protein <0.2 (<1.0) mg/dL Total Protein 7.7 (6.4-8.2) g/dl Albumin 4.3 (3.4-5.0) g/dl Globulin 3.4 gm/dL Albumin/Globulin Ratio 1.3 (1-2) Urine Color Yellow (Yellow) Urine Appearance Clear (Clear) Urine pH 6.0 (5.0-8.0) Ur Specific [place] > or = 1.030 (1.005-1.030) Urine Protein Negative (Negative) Urine Glucose (UA) Negative (Negative) Urine Ketones Negative (Negative) Urine Occult Blood 2+ H (Negative) Urine Nitrite Negative (Negative) Urine Bilirubin Negative (Negative) Urine Urobilinogen 0.2 (0.2-1.0) Ur Leukocyte Esterase Negative (Negative) U Hyaline Cast (Auto) 10-20 H (0-5) /lpf Urine RBC 5-10 H (0-5) /hpf Urine WBC Not seen (0-5) /hpf Ur Squamous Epith Cells 0-5 (0-5) /hpf Urine Bacteria Few (FEW) /hpf Urine Mucus Moderate H (FEW) /hpf Meds: Medications Discontinued Medications Generic Name Dose Route Start Last Admin Trade Name Freq PRN Reason Stop Dose Admin Hydromorphone HCl 1 mg 11/17/20 09:25 11/17/20 09:33 Hydromorphone 1 Mg/Ml Syringe IVPUSH 11/17/20 09:26 1 mg NOW STA Administration Hydromorphone HCl 1 mg 11/17/20 09:36 11/17/20 09:38 Hydromorphone 1 Mg/Ml Syringe IVPUSH 11/17/20 09:37 Not Given NOW STA Hydromorphone HCl 1 mg 11/17/20 10:49 11/17/20 10:55 Hydromorphone 1 Mg/Ml Syringe IVPUSH 11/17/20 10:50 1 mg ONETIME ONE Administration Sodium Chloride 1,000 mls @ 999 mls/hr 11/17/20 09:25 11/17/20 09:35 Normal Saline IV 11/17/20 10:25 999 mls/hr ONETIME ONE Administration Ondansetron HCl 4 mg 11/17/20 09:25 11/17/20 09:31 Ondansetron 4 Mg/2 Ml Sdv IVPUSH 11/17/20 09:26 4 mg ONETIME ONE Administration Tamsulosin HCl 0.4 mg 11/17/20 10:08 11/17/20 10:42 Tamsulosin 0.4 Mg Cap.Er PO 11/17/20 10:09 0.4 mg ONETIME ONE Administration - Re-Assessments/Exams Free Text/Narrative Re-Assessment/Exam: 11/17/20 10:[address] of the abdomen and pelvis: 1. 6 mm obstructing calculus within the right distal ureter slightly proximal to the UVJ. Nonobstructing calculus within the lower pole of the right kidney. 2. Other findings as noted which are nonacute. Patient does have multiple cysts noted within the right and left lobes of the liver. Largest cyst measures approximately 3.3 cm. Spleen shows a small low-density finding measuring 1.8 cm believed to be at so-called pseudocyst. 11/17/20 10:17 Hematology reveals a WBC of 9.44, hemoglobin 15.9, hematocrit 48.3, platelet count 208 Chemistry reveals a sodium of 148, potassium 4.0, chloride 109, anion gap 18.0, BUN 19, creatinine 1.5, glucose 122, magnesium 1.9, C-reactive protein less than 0.2 Urinalysis is pending. I have ordered Flomax 0.4 mg x 1 dose p.o. now. 11/17/20 13:25 Patient will be discharged to home as he is doing much better and is pain-free. However, I am waiting for a micro report on his urine prior to me being able to do that. I have phoned the lab and they state that this will be resulted out shortly. 11/17/20 13:29 Urinalysis reveals 2+ occult blood, 10-20 hyaline casts, nitrite negative, leukocyte Estrace negative, urine RBC 5-10, urine WBC not seen, moderate mucus. Patient will be discharged home with recommendations that he follow-up with urology either at [place] or [facility] if he has not passed the stone within the next week or 2. Patient understands discharge instructions. Departure - Departure Time of Disposition: 13:38 Disposition: Home, Self-Care 01 Condition: Good Clinical Impression: Kidney stone on right side - Discharge Information Prescriptions: Tamsulosin HCl [Flomax] 0.4 mg PO DAILY #10 cap.er.24h Acetaminophen/oxyCODONE [Percocet 325-5 MG] 1 each PO Q6H PRN #10 tab PRN Reason: Pain (Moderate 4-6) Instructions: Kidney Stones, [id number], Pain Medicine Instructions, [id number] Referrals: Shaquille Urrutia MD [Primary Care Provider] - Forms: ED Department Discharge Additional Instructions: You were seen in the emergency department today with right lower quadrant abdominal pain. Lab work was completed which is essentially unremarkable. Urinalysis revealed blood however there is no infection in your urine. CT scan did show that you have a kidney stone on the right side just before the bladder. Size is 6 mm. As discussed you may have already passed to this. You will need to strain all of your urine over the next few days. If you have not passed the stone within the next week, you will need to follow-up with a urologist at [facility] in [place] as you may need to have the stone surgically removed. I have sent the prescription to your pharmacy for Flomax. This medication is to be taken daily and this will help to dilate your ureters to help the stone pass. Once you have passed your stone you do not need to continue taking this medication. I have also sent a prescription for pain medication called Percocet. This is a narcotic pain medication. It can be taken 1-2 tabs every 6 hours as needed for moderate to severe pain. Keep in mind that this is a narcotic medication and you cannot drive or operate heavy machinery while taking this. Should your condition worsen or change, do not hesitate returning to the emergency department. Sepsis Event Note (ED) - Evaluation Sepsis Screening Result: No Definite Risk - Focused Exam Vital Signs: Vital Signs Temp Pulse Resp BP Pulse Ox 11/17/20 09:11 96.8 F L 60 20 186/99 H 100
--- NOTE | 2020-11-17 10:17 | CT ---
CT abdomen and pelvis Technique: Multiple axial sections were obtained from above the dome of the diaphragm inferiorly through the pubic symphysis. Intravenous and oral contrast were not utilized. Reconstructed coronal and sagittal images were also obtained. Comparison: Nothing acute is seen within the visualized lung bases. Right kidney shows hydronephrosis and a dilated ureter down to the bladder. This finding is caused by a 6 mm calculus located slightly proximal to the UVJ. Right kidney shows one lobulated or two adjacent nonobstructing calculi within the lower pole. Left kidney shows no abnormal calcifications. Multiple cysts are noted within the right and left lobes of the liver. Largest cyst measures approximately 3.3 cm. Adrenal glands show no nodule. No abnormality is appreciated within the pancreas. Spleen shows a small low density finding measuring 1.8 cm believed to represent a so-called pseudocyst. Abdominal aorta shows atherosclerotic change with no aneurysm. Atherosclerotic change continues into the iliac vessels. No retroperitoneal adenopathy is seen. Fat-containing umbilical hernia is noted. Appendix is seen and appears to be normal. No pelvic mass or adenopathy is seen. Small fat-containing bilateral inguinal hernias are noted. Bone window settings show scattered degenerative change within the spine most prominent at L5-S1. Mild degenerative change is also noted within both hips as well as within the sacroiliac joints. Impression: 1. 6 mm obstructing calculus within the distal right ureter slightly proximal to the UVJ. Nonobstructing calculus within the lower pole of the right kidney. 2. Other findings as noted above which are nonacute. Diagnostic code #3
[2020-11-17] MEDS ORDERED: HYDROmorphone 1 MG/ML Syringe IVPUSH ONE (10:49)
== END 2020-11-17 13:55 | disposition home or self-care (01) ==
LOC: JD.ED 09:06
DX: N13.2 Hydronephrosis with renal and ureteral calculous obstruction (principal); I48.91 Unspecified atrial fibrillation; E78.00 Pure hypercholesterolemia, unspecified; I10 Essential (primary) hypertension; Z79.82 Long term (current) use of aspirin; Z79.899 Other long term (current) drug therapy
CPT/HCPCS: 36415; 74176; 80053; 81001; 83735; 85025; 86140; 96374; 96375; 96376; 99284; A9270; J1170; J2405; J7030

== ENCOUNTER 2021-03-09 00:34 | Emergency (ER) | payer BC ==
[2021-03-09 01:34] VITALS: BP 161/92; PULSE 95
--- NOTE | 2021-03-09 01:57 | EDM.PDOC ---
ED HPI GENERAL MEDICAL PROBLEM - General Chief Complaint: Gastrointestinal Problem Stated Complaint: VOMITING SINCE 4 PM Time Seen by Provider: 03/09/21 01:50 - History of Present Illness INITIAL COMMENTS - FREE TEXT/NARRATIVE: 60-year-old male presents the emergency room with back pain nausea and vomiting. This started late this afternoon. Pain seems to be getting worse. He has vomited probably 6 times this seems to be brought on by the pain. The pain seems to be coming from his back radiates into his abdomen stays only on the right side. Patient has a history of kidney stones but they have been quite active like this in the past. He denies any fevers or chills. He is not aware of any blood in his urine or other problems. Back Pain Score (Numeric/FACES): 6 - Related Data Allergies Allergy/AdvReac Type Severity Reaction Status Date / Time No Known Allergies Allergy Verified 03/09/21 00:53 Home Meds: Home Meds Losartan/Hydrochlorothiazide [Losartan-HCTZ 100-25 MG] 25 - 100 mg PO DAILY@199911/30/14 [History] atorvaSTATin [Lipitor] 40 mg PO BEDTIME 11/30/14 [History] Metoprolol Succinate [Toprol XL] 50 mg PO DAILY 05/08/18 [History] Aspirin [Halfprin] 81 mg PO DAILY 11/02/20 [History] Acetaminophen/oxyCODONE [Percocet 325-5 MG] 1 each PO Q6H PRN #10 tab 11/17/20 [Rx] Levothyroxine [Synthroid] 50 mcg PO ACBREAKFAST 11/17/20 [History] Tamsulosin HCl [Flomax] 0.4 mg PO DAILY #10 cap.er.24h 11/17/20 [Rx] Topiramate 50 mg PO DAILY 11/17/20 [History] allopurinoL [Zyloprim] 100 mg PO DAILY 11/17/20 [History] Naproxen [Naprosyn] 500 mg PO BID #14 tab 03/09/21 [Rx] Orphenadrine [Norflex] 100 mg PO BID #13 tab 03/09/21 [Rx] Past Medical History Cardiovascular History: Reports: Afib, High Cholesterol, Hypertension Respiratory History: Reports: Sleep Apnea Other Respiratory History: pt uses C-pap Gastrointestinal History: Reports: GERD Genitourinary History: Reports: Renal Calculus Musculoskeletal History: Reports: Osteoarthritis Endocrine/Metabolic History: Reports: Obesity/BMI 30+ - Past Surgical History HEENT Surgical History: Reports: Oral Surgery Cardiovascular Surgical History: Reports: Cardiac Ablation Other Respiratory Surgeries/Procedures: per pt had steel plate placed in the neck 2004 Neurological Surgical History: Reports: C-Spine, Lumbar Spine Musculoskeletal Surgical History: Reports: Arthroscopic Knee Social & Family History - Tobacco Use Tobacco Use Status *Q: Unknown Ever Used Tobacco - Caffeine Use Caffeine Use: Reports: None - Living Situation & Occupation Living situation: Reports: , with Spouse, with Family (1 18 yr old) Occupation: Employed ([employer]) ED ROS GENERAL - Review of Systems Review Of Systems: See Below Constitutional: Reports: No Symptoms HEENT: Reports: No Symptoms Respiratory: Reports: No Symptoms Cardiovascular: Reports: No Symptoms GI/Abdominal: Reports: Abdominal Pain, Nausea, Vomiting. Denies: Constipation, Diarrhea : Reports: Flank Pain. Denies: Dysuria, Frequency, Urgency Musculoskeletal: Reports: No Symptoms Skin: Reports: No Symptoms Neurological: Reports: No Symptoms ED EXAM, GI/ABD - Physical Exam Exam: See Below Exam Limited By: No Limitations General Appearance: Alert, No Apparent Distress Head: Atraumatic, Normocephalic Neck: Normal Inspection, Supple, Non-Tender, Full Range of Motion Respiratory/Chest: No Respiratory Distress, Lungs Clear, Normal Breath Sounds Cardiovascular: Regular Rate, Rhythm, No Edema, No Murmur GI/Abdominal Exam: Normal Bowel Sounds, Soft, Non-Tender (Patient complains of abdominal tenderness however with careful palpation I cannot make the pain worse in any way shape or form. The pain is on the right side. No appreciable organomegaly no rebound guarding) Back Exam: Normal Inspection. No: CVA Tenderness (L), CVA Tenderness (R) Extremities: Normal Inspection Course - Vital Signs Last Recorded V/S: Last Vital Signs Temp 36.8 C 03/09/21 01:31 Pulse 95 03/09/21 01:31 Resp 15 03/09/21 01:31 BP 161/92 H 03/09/21 01:31 Pulse Ox 96 03/09/21 01:31 - Orders/Labs/Meds Orders: Active Orders 24 hr Category Date Time Status Abdomen Pelvis wo Cont [CT] Stat Exams 03/09/21 02:04 Taken Lactated Ringers [Ringers, Lactated] 1,000 ml Med 03/09/21 02:00 Active IV ASDIRECTED Medication Orders Lactated Ringer's (Ringers, Lactated) 1,000 mls @ 125 mls/hr IV ASDIRECTED THUY Last Admin: 03/09/21 02:11 Dose: 125 mls/hr Documented by: BOO Labs: Laboratory Tests 03/09/21 03/09/21 03/09/21 Range/Units 02:12 02:12 05:02 WBC 4.60 (4.23-9.07) K/mm3 RBC 5.07 (4.63-6.08) M/mm3 Hgb 14.5 (13.7-17.5) gm/dl Hct 44.5 (40.1-51.0) % MCV 87.8 (79.0-92.2) fl MCH 28.6 (25.7-32.2) pg MCHC 32.6 (32.2-35.5) g/dl RDW Std Deviation 43.1 (35.1-43.9) fL Plt Count 160 L (163-337) K/mm3 MPV 11.3 (9.4-12.3) fl Neut % (Auto) 52.4 (34.0-67.9) % Lymph % (Auto) 21.1 L (21.8-53.1) % [place] % (Auto) 26.1 H (5.3-12.2) % Eos % (Auto) 0.2 L (0.8-7.0) Baso % (Auto) 0.2 (0.1-1.2) % Neut # (Auto) 2.41 (1.78-5.38) K/mm3 Lymph # (Auto) 0.97 L (1.32-3.57) K/mm3 [place] # (Auto) 1.20 H (0.30-0.82) K/mm3 Eos # (Auto) 0.01 L (0.04-0.54) K/mm3 Baso # (Auto) 0.01 (0.01-0.08) K/mm3 Manual Slide Review Abnormal smear Sodium 143 (136-145) mEq/L Potassium 3.8 (3.5-5.1) mEq/L Chloride 106 (98-107) mEq/L Carbon Dioxide 25 (21-32) mEq/L Anion Gap 15.8 H (5-15) BUN 17 (7-18) mg/dL Creatinine 1.3 (0.7-1.3) mg/dL Est Cr Clr Drug Dosing 62.75 mL/min Estimated GFR (MDRD) 56 (>60) mL/min BUN/Creatinine Ratio 13.1 L (14-18) Glucose 135 H (70-99) mg/dL Calcium 8.8 (8.5-10.1) mg/dL Total Bilirubin 0.4 (0.2-1.0) mg/dL AST 44 H (15-37) U/L ALT 82 H (16-63) U/L Alkaline Phosphatase 42 L (46-116) U/L Total Protein 7.3 (6.4-8.2) g/dl Albumin 4.0 (3.4-5.0) g/dl Globulin 3.3 gm/dL Albumin/Globulin Ratio 1.2 (1-2) Urine Color Yellow (Yellow) Urine Appearance Clear (Clear) Urine pH 6.0 (5.0-8.0) Ur Specific [place] > or = 1.030 (1.005-1.030) Urine Protein Negative (Negative) Urine Glucose (UA) Negative (Negative) Urine Ketones Negative (Negative) Urine Occult Blood Negative (Negative) Urine Nitrite Negative (Negative) Urine Bilirubin Negative (Negative) Urine Urobilinogen 0.2 (0.2-1.0) Ur Leukocyte Esterase Negative (Negative) Meds: Medications Generic Name Dose Route Start Last Admin Trade Name Freq PRN Reason Stop Dose Admin Lactated Ringer's 1,000 mls @ 125 mls/hr 03/09/21 02:00 03/09/21 02:11 Ringers, Lactated IV 125 mls/hr ASDIRECTED THUY Administration Discontinued Medications Generic Name Dose Route Start Last Admin Trade Name Freq PRN Reason Stop Dose Admin Fentanyl 50 mcg 03/09/21 01:59 03/09/21 02:14 Fentanyl 100 Mcg/2 Ml Sdv IVPUSH 03/09/21 02:00 50 mcg ONETIME ONE Administration Fentanyl 50 mcg 03/09/21 03:44 03/09/21 03:49 Fentanyl 100 Mcg/2 Ml Sdv IVPUSH 03/09/21 03:45 50 mcg ONETIME ONE Administration Ondansetron HCl 4 mg 03/09/21 01:59 03/09/21 02:11 Ondansetron 4 Mg/2 Ml Sdv IVPUSH 03/09/21 02:00 4 mg ONETIME ONE Administration Orphenadrine Citrate 100 mg 03/09/21 06:18 Orphenadrine 100 Mg Tab.Er PO 03/09/21 06:19 ONETIME ONE - Re-Assessments/Exams Free Text/Narrative Re-Assessment/Exam: 03/09/21 06:19 It took us a long time to get his CAT scan results but this did not show any acute kidney stone. He is got a large stone within the right kidney but no evidence of hydronephrosis within the kidney normal caliber ureters with no evidence of obstruction or stones present. Urinalysis is not suggestive of infectious process. The appendix is well visualized on the CT and appears otherwise normal no other abnormalities appreciated other than some fatty liver and liver cysts. Reexamination shows some areas of back tenderness only with the leg extended and this seems to mimic his pain to some degree. We will attempt to treat it like a muscle spasm with Norflex and Naprosyn but because of his underlying hypertension and age will limit his nonsteroidal use to 1 week. Departure - Departure Time of Disposition: 06:23 Disposition: Home, Self-Care 01 Clinical Impression: Right-sided back pain - Discharge Information Referrals: PCP,None [Primary Care Provider] - Shqauille Urrutia MD [Physician] - Forms: ED Department Discharge Additional Instructions: Return to the emergency room with any questions problems or worsening symptoms. Follow-up in the clinic on Saturday for recheck. You been started on 2 medications the first 1 is Norflex, this is a muscle relaxant take this twice daily for 7 days. Your first dose of Norflex was given here in the emergency room. You have also been started on naproxen this is a ibuprofen like medication. Take 1 twice daily with meals for 1 week. Sepsis Event Note (ED) - Evaluation Sepsis Screening Result: No Definite Risk - Focused Exam Vital Signs: Vital Signs Temp Pulse Resp BP Pulse Ox 03/09/21 01:31 36.8 C 95 15 161/92 H 96 - My Orders Last 24 Hours: My Active Orders 03/09/21 02:00 Lactated Ringers [Ringers, Lactated] 1,000 ml IV ASDIRECTED 03/09/21 02:04 Abdomen Pelvis wo Cont [CT] Stat - Assessment/Plan Last 24 Hours: My Active Orders 03/09/21 02:00 Lactated Ringers [Ringers, Lactated] 1,000 ml IV ASDIRECTED 03/09/21 02:04 Abdomen Pelvis wo Cont [CT] Stat
[2021-03-09] MEDS ORDERED: Ondansetron 4 MG/2 ML SDV IVPUSH ONE (01:59)
[2021-03-09] MEDS ORDERED: fentaNYL 100 MCG/2 ML SDV IVPUSH ONE ×2 (01:59→03:44)
[2021-03-09] MEDS ORDERED: Lactated Ringers 1,000 ML IV SCH (02:00)
[2021-03-09] MEDS ORDERED: Orphenadrine 100 MG Tab.ER PO ONE (06:18)
--- NOTE | 2021-03-09 07:20 | CT ---
CT abdomen and pelvis Technique: Multiple axial sections were obtained from above the dome of the diaphragm inferiorly through the pubic symphysis. Intravenous and oral contrast were not utilized. Study has been performed as a ureteral stone protocol. Reconstructed coronal and sagittal images were obtained. Comparison: Prior CT abdomen and pelvis exam of 11/17/20. Findings: Both posterior lung bases show mild atelectasis. Liver shows prominent fatty infiltration. Three low density lesions are seen within the liver which are compatible with cysts. Largest cyst measures 3.0 cm. These findings are felt to be fairly stable from prior exam. Spleen shows a small low density lesion measuring 1.7 cm which is stable from prior exam which is compatible with pseudocyst. Spleen does not appear to be enlarged. Adrenal glands show no nodule. Pancreas shows no discrete abnormality. Kidneys show a nonobstructing calculus on the right side measuring about 8 mm. Kidneys show no additional calculi. No ureteral dilatation or ureteral stone is seen. No bladder calculi are noted. Abdominal aorta shows atherosclerotic calcification with no aneurysm. No retroperitoneal adenopathy or mesenteric abnormalities are seen. Appendix is felt to be visualized and is normal in size. No pelvic mass or adenopathy is seen. Mild fat-containing bilateral inguinal hernias are noted. Bone window settings were reviewed. Severe disc space narrowing is seen at L5-S1 with posterior and anterior osteophytes. L4-5 disc shows vacuum phenomena which is an interval change with mild posterior disc space narrowing. Cystic lesion is seen within the inferior L4 vertebral body which is stable. Other degenerative change is noted within the spine and appears to be stable. Degenerative change is also noted within both sacroiliac joints as well as within both hips. Impression: 1. Nonobstructing stone within the right kidney. No ureteral dilatation or ureteral stone is seen. 2. Other findings as noted above which are felt to be chronic. Nothing acute is appreciated on noncontrast CT study of the abdomen and pelvis. Diagnostic code #3 I mostly agree with preliminary report from [facility] (no definite splenomegaly is seen), finalized on 03/09/21, 5:36 AM CDT, code 2
== END 2021-03-09 06:41 | disposition home or self-care (01) ==
LOC: JD.ED 00:34
DX: M54.9 Dorsalgia, unspecified (principal); I48.91 Unspecified atrial fibrillation; E78.00 Pure hypercholesterolemia, unspecified; I10 Essential (primary) hypertension; K21.9 Gastro-esophageal reflux disease without esophagitis; E66.9 Obesity, unspecified; Z68.37 Body mass index [BMI] 37.0-37.9, adult; Z79.82 Long term (current) use of aspirin; Z79.899 Other long term (current) drug therapy
CPT/HCPCS: 36415; 74176; 80053; 81003; 85025; 96374; 96375; 96376; 99284; A9270; J2405; J3010; J7120

== ENCOUNTER 2021-03-11 08:47 | Emergency (ER) | payer BC ==
[2021-03-11] MEDS ORDERED: diphenhydrAMINE 50 MG/ML SDV IVPUSH PRN (09:09)
[2021-03-11] MEDS ORDERED: Famotidine 20 MG/2 ML SDV IVPUSH PRN (09:09)
[2021-03-11] MEDS ORDERED: Bamlanivimab 700 MG, ETESEVIMAB 1,400 MG in Sodium Chloride 0.9% 100 ML IV ONE (09:09)
[2021-03-11] MEDS ORDERED: EPINEPHrine 1 MG/ML SDV IM PRN (09:09)
[2021-03-11] MEDS ORDERED: methylPREDNISolone Sodium Succinate 125 MG/2 ML SDV IVPUSH PRN (09:09)
[2021-03-11] MEDS ORDERED: Sodium Chloride 0.9% 10 ML Syringe FLUSH SCH (09:15)
--- NOTE | 2021-03-11 09:29 | EDM.PDOC ---
ED HPI GENERAL MEDICAL PROBLEM - General Chief Complaint: Respiratory Problem Stated Complaint: COVID +/COUGH Time Seen by Provider: 03/11/21 09:12 Source of Information: Reports: Patient History Limitations: Reports: No Limitations - History of Present Illness INITIAL COMMENTS - FREE TEXT/NARRATIVE: 60-year-old male presents to the ED with known positive COVID-19 illness. He started to feel unwell on the evening of March 08. 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 He came up because of low back pain and concern for possible recurrence of kidney stone. Subsequently he has developed sore throat nasal congestion paroxysmal productive cough of white sputum. Loss of appetite. No nausea vomiting or diarrhea. COVID-19 screen was positive on March 10. His has similar symptoms but she tested negative on the rapid test. He came up today due to his pulse oximeter reading only 90% this morning. In the ED his O2 sats are 97 to 98%. He has quite a significant productive cough in the ED. Mildly warm to palpation. He is aware of monoclonal antibody therapy in the nm this is the major reason for coming to the ED. Onset: Sudden Onset Date: 03/08/21 (Started to feel unwell on the evening of March 08 both 1600 hrs.) Onset Time: 16:00 Duration: Day(s):, Getting Worse Location: Reports: Head, Face (Mild headache marked nasal congestion), Chest ( mild sore throat paroxysmal productive cough of white sputum), Generalized (Generalized myalgia with quite significant pain in his lower back and neck and upper thighs), Other (Fever chills) Quality: Reports: Ache Severity: Moderate (Generalized myalgia) Improves with: Reports: Medication, Rest Worsens with: Reports: Movement Context: Reports: Sick Contact (Patient's or his [id number] had Covid). Denies: Activity, Exercise, Lifting, Trauma, Other Associated Symptoms: Reports: Cough (White sputum), cough w sputum, Fever/Chills, Headaches, Loss of Appetite, Malaise, Shortness of Breath, Weakness. 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, NSAIDS (Motrin) Back Pain Score (Numeric/FACES): 3 - Related Data Allergies Allergy/AdvReac Type Severity Reaction Status Date / Time No Known Allergies Allergy Verified 03/11/21 08:58 Home Meds: Home Meds Losartan/Hydrochlorothiazide [Losartan-HCTZ 100-25 MG] 25 - 100 mg PO DAILY@199911/30/14 [History] atorvaSTATin [Lipitor] 40 mg PO BEDTIME 11/30/14 [History] Metoprolol Succinate [Toprol XL] 50 mg PO DAILY 05/08/18 [History] Aspirin [Halfprin] 81 mg PO DAILY 11/02/20 [History] Acetaminophen/oxyCODONE [Percocet 325-5 MG] 1 each PO Q6H PRN #10 tab 11/17/20 [Rx] Levothyroxine [Synthroid] 50 mcg PO ACBREAKFAST 11/17/20 [History] Tamsulosin HCl [Flomax] 0.4 mg PO DAILY #10 cap.er.24h 11/17/20 [Rx] Topiramate 50 mg PO DAILY 11/17/20 [History] allopurinoL [Zyloprim] 100 mg PO DAILY 11/17/20 [History] Naproxen [Naprosyn] 500 mg PO BID #14 tab 03/09/21 [Rx] Orphenadrine [Norflex] 100 mg PO BID #13 tab 03/09/21 [Rx] Hydrocodone/Chlorphen P-Stirex [Hydrocodone-Chlorphen ER Susp] 5 ml PO Q12H PRN #60 ml 03/11/21 [Rx] Past Medical History Cardiovascular History: Reports: Afib, High Cholesterol, Hypertension Respiratory History: Reports: Sleep Apnea Other Respiratory History: pt uses C-pap Gastrointestinal History: Reports: GERD Genitourinary History: Reports: BPH (On tamsulosin.), Renal Calculus Musculoskeletal History: Reports: Gout, Osteoarthritis Endocrine/Metabolic History: Reports: Obesity/BMI 30+ - Infectious Disease History Infectious Disease History: Reports: Novel Coronavirus - Past Surgical History HEENT Surgical History: Reports: Oral Surgery Cardiovascular Surgical History: Reports: Cardiac Ablation Other Respiratory Surgeries/Procedures: per pt had steel plate placed in the neck 2004 Neurological Surgical History: Reports: C-Spine, Lumbar Spine Musculoskeletal Surgical History: Reports: Arthroscopic Knee Social & Family History - Tobacco Use Tobacco Use Status *Q: Never Tobacco User Second Hand Smoke Exposure: No - Caffeine Use Caffeine Use: Reports: Coffee - Recreational Drug Use Recreational Drug Use: No - Living Situation & Occupation Living situation: Reports: , with Spouse, with Family (1 18 yr old) Occupation: Employed ([employer]) ED ROS GENERAL - Review of Systems Review Of Systems: See Below Constitutional: Reports: Fever, Chills, Malaise, Weakness, Fatigue, Decreased Appetite, Weight Loss HEENT: Reports: Rhinitis, Sinus Problem (Sinus congestion), Throat Pain, Other Respiratory: Reports: Shortness of Breath (Associated loss of set sense of smell for sure), Cough, Sputum (White sputum production). Denies: Wheezing, Pleuritic Chest Pain Cardiovascular: Reports: No Symptoms. Denies: Chest Pain Endocrine: Reports: Fatigue GI/Abdominal: Reports: Decreased Appetite. Denies: Diarrhea, Nausea, Vomiting : Reports: Flank Pain (Diffuse low back pain worse on the right as compared to the left) Musculoskeletal: Reports: Neck Pain, Back Pain, Muscle Pain (Generalized myalgia) Skin: Reports: No Symptoms Neurological: Reports: Headache Psychiatric: Reports: No Symptoms Hematologic/Lymphatic: Reports: No Symptoms Immunologic: Reports: No Symptoms ED EXAM, GENERAL - Physical Exam Exam: See Below Exam Limited By: No Limitations General Appearance: Alert, WD/WN, Mild Distress, Other (Patient does feel warrant palpation. Nurses recorded temperature is 36.1. Heart rate 66 and sinus respiratory is 20 with O2 sats of 97% room air. BP is 134/83) Eye Exam: Bilateral Eye: Normal Inspection (No blepharal pallor or scleral icterus), PERRL Ears: Normal TMs Throat/Mouth: Normal Lips, Normal Teeth, Other (Diet mild diffuse erythema of posterior oropharynx without exudate). No: Normal Oropharynx Head: Atraumatic, Normocephalic Neck: Normal Inspection, Supple, Non-Tender, Full Range of Motion. No: Carotid Bruit, Lymphadenopathy (L), Lymphadenopathy (R) Respiratory/Chest: Lungs Clear, Normal Breath Sounds, No Accessory Muscle Use, Respiratory Distress (Productive sounding cough expectorating white sputum), Other. No: No Respiratory Distress Cardiovascular: Normal Peripheral Pulses, Regular Rate, Rhythm, No Edema, No Gallop, No Murmur, No Rub Peripheral Pulses: 2+: Posterior Tibial (L), Posterior Tibial (R), Dorsalis Pedis (L), Dorsalis Pedis (R), 3+: Carotid (L), Carotid (R) GI/Abdominal: Normal Bowel Sounds, Soft, Non-Tender, No Organomegaly, No Distention, Other (Mildly obese. No surgical scars) (Male) Exam: No Hernia Back Exam: CVA Tenderness (R) (Mildly positive), Decreased Range of Motion (Diffuse paraspinal muscle spasm both sides of his lumbar spine). No: CVA Tenderness (L) Extremities: Normal Inspection, Normal Range of Motion, Non-Tender, No Pedal Edema Neurological: Alert, Oriented, CN II-XII Intact, Normal Cognition Psychiatric: Normal Affect, Normal Mood Skin Exam: Warm, Dry, Intact, Normal Color, No Rash #1 Interpretation EKG Date: 03/11/21 Time: 10:07 Rhythm: NSR Rate (Beats/Min): 62 [place]: Normal P-Wave: Enlarged QRS: Normal ST-T: Normal QT: Normal EKG Interpretation Comments: Essentially normal ECG Course - Vital Signs Last Recorded V/S: Last Vital Signs Temp 36.1 C 03/11/21 08:56 Pulse 66 03/11/21 08:56 Resp 20 03/11/21 08:56 BP 134/83 03/11/21 08:56 Pulse Ox 97 03/11/21 08:56 - Orders/Labs/Meds Orders: Active Orders 24 hr Category Date Time Status Vital Signs [RC] Q15M Care 03/11/21 09:10 Active Chest 1V Frontal [CR] Stat Exams 03/11/21 09:24 Taken Dextrose 5%-0.9% NaCl [Dextrose 5%-Normal Saline] 1,000 Med 03/11/21 09:30 Active ml IV ASDIRECTED EPINEPHrine [Adrenalin] Med 03/11/21 09:09 Active 0.3 mg IM ASDIRECTED PRN Famotidine [Pepcid] Med 03/11/21 09:09 Active 20 mg IVPUSH ASDIRECTED PRN Ketorolac [Toradol] Med 03/11/21 09:45 Active 30 mg IVPUSH ONETIME Sodium Chloride 0.9% [Saline Flush] Med 03/11/21 09:15 Active 30 ml FLUSH ASDIRECTED diphenhydrAMINE [Benadryl] Med 03/11/21 09:09 Active 50 mg IVPUSH ASDIRECTED PRN methylPREDNISolone Sod Succ [Solu-MEDROL] Med 03/11/21 09:09 Active 125 mg IVPUSH ASDIRECTED PRN Medication Orders Diphenhydramine HCl (Diphenhydramine 50 Mg/Ml Sdv) 50 mg IVPUSH ASDIRECTED PRN PRN Reason: hypersensitivity reaction Epinephrine HCl (Epinephrine 1 Mg/Ml Sdv) 0.3 mg IM ASDIRECTED PRN PRN Reason: hypersensitivity reaction Famotidine (Famotidine 20 Mg/2 Ml Sdv) 20 mg IVPUSH ASDIRECTED PRN PRN Reason: hypersensitivity reaction Dextrose/Sodium Chloride (Dextrose 5%-Normal Saline) 1,000 mls @ 100 mls/hr IV ASDIRECTED [facility] Ketorolac Tromethamine (Ketorolac 30 Mg/Ml Sdv) 30 mg IVPUSH ONETIME THUY Methylprednisolone Sodium Succinate (Methylprednisolone Sodium Succinate 125 Mg/ 2 Ml Sdv) 125 mg IVPUSH ASDIRECTED PRN PRN Reason: hypersensitivity reaction Sodium Chloride (Sodium Chloride 0.9% 10 Ml Syringe) 30 ml FLUSH ASDIRECTED [facility] Labs: Laboratory Tests 03/11/21 03/11/21 03/11/21 Range/Units 09:07 09:07 09:07 WBC 5.34 (4.23-9.07) K/mm3 RBC 5.35 (4.63-6.08) M/mm3 Hgb 15.3 (13.7-17.5) gm/dl Hct 46.8 (40.1-51.0) % MCV 87.5 (79.0-92.2) fl MCH 28.6 (25.7-32.2) pg MCHC 32.7 (32.2-35.5) g/dl RDW Std Deviation 44.0 H (35.1-43.9) fL Plt Count 169 (163-337) K/mm3 MPV 11.2 (9.4-12.3) fl Neut % (Auto) 43.3 (34.0-67.9) % Lymph % (Auto) 40.8 (21.8-53.1) % [place] % (Auto) 15.7 H (5.3-12.2) % Eos % (Auto) 0 L (0.8-7.0) Baso % (Auto) 0.2 (0.1-1.2) % Neut # (Auto) 2.31 (1.78-5.38) K/mm3 Lymph # (Auto) 2.18 (1.32-3.57) K/mm3 [place] # (Auto) 0.84 H (0.30-0.82) K/mm3 Eos # (Auto) 0.00 L (0.04-0.54) K/mm3 Baso # (Auto) 0.01 (0.01-0.08) K/mm3 D-Dimer, Quantitative 0.31 (0.19-0.50) mg/L Sodium 140 (136-145) mEq/L Potassium 3.5 (3.5-5.1) mEq/L Chloride 105 (98-107) mEq/L Carbon Dioxide 27 (21-32) mEq/L Anion Gap 11.5 (5-15) BUN 30 H (7-18) mg/dL Creatinine 1.0 (0.7-1.3) mg/dL Est Cr Clr Drug Dosing 81.58 mL/min Estimated GFR (MDRD) > 60 (>60) mL/min BUN/Creatinine Ratio 30.0 H (14-18) Glucose 209 H (70-99) mg/dL Lactic Acid (0.4-2.0) mmol/L Calcium 8.9 (8.5-10.1) mg/dL Magnesium 1.8 (1.8-2.4) mg/dL Total Bilirubin 0.7 (0.2-1.0) mg/dL AST 14 L (15-37) U/L ALT 15 L (16-63) U/L Alkaline Phosphatase 61 (46-116) U/L Lactate Dehydrogenase 173 (85-227) U/L Troponin I < 0.017 (0.00-0.056) ng/mL C-Reactive Protein 5.4 H* (<1.0) mg/dL NT-Pro-B Natriuret Pep (0-125) pg/mL Total Protein 6.0 L (6.4-8.2) g/dl Albumin 3.4 (3.4-5.0) g/dl Globulin 2.6 gm/dL Albumin/Globulin Ratio 1.3 (1-2) 03/11/21 03/11/21 Range/Units 09:07 09:47 WBC (4.23-9.07) K/mm3 RBC (4.63-6.08) M/mm3 Hgb (13.7-17.5) gm/dl Hct (40.1-51.0) % MCV (79.0-92.2) fl MCH (25.7-32.2) pg MCHC (32.2-35.5) g/dl RDW Std Deviation (35.1-43.9) fL Plt Count (163-337) K/mm3 MPV (9.4-12.3) fl Neut % (Auto) (34.0-67.9) % Lymph % (Auto) (21.8-53.1) % [place] % (Auto) (5.3-12.2) % Eos % (Auto) (0.8-7.0) Baso % (Auto) (0.1-1.2) % Neut # (Auto) (1.78-5.38) K/mm3 Lymph # (Auto) (1.32-3.57) K/mm3 [place] # (Auto) (0.30-0.82) K/mm3 Eos # (Auto) (0.04-0.54) K/mm3 Baso # (Auto) (0.01-0.08) K/mm3 D-Dimer, Quantitative (0.19-0.50) mg/L Sodium (136-145) mEq/L Potassium (3.5-5.1) mEq/L Chloride (98-107) mEq/L Carbon Dioxide (21-32) mEq/L Anion Gap (5-15) BUN (7-18) mg/dL Creatinine (0.7-1.3) mg/dL Est Cr Clr Drug Dosing mL/min Estimated GFR (MDRD) (>60) mL/min BUN/Creatinine Ratio (14-18) Glucose (70-99) mg/dL Lactic Acid 1.8 (0.4-2.0) mmol/L Calcium (8.5-10.1) mg/dL Magnesium (1.8-2.4) mg/dL Total Bilirubin (0.2-1.0) mg/dL AST (15-37) U/L ALT (16-63) U/L Alkaline Phosphatase (46-116) U/L Lactate Dehydrogenase (85-227) U/L Troponin I (0.00-0.056) ng/mL C-Reactive Protein (<1.0) mg/dL NT-Pro-B Natriuret Pep 708 H (0-125) pg/mL Total Protein (6.4-8.2) g/dl Albumin (3.4-5.0) g/dl Globulin gm/dL Albumin/Globulin Ratio (1-2) Meds: Medications Generic Name Dose Route Start Last Admin Trade Name Freq PRN Reason Stop Dose Admin Diphenhydramine HCl 50 mg 03/11/21 09:09 Diphenhydramine 50 Mg/Ml Sdv IVPUSH ASDIRECTED PRN hypersensitivity reaction Epinephrine HCl 0.3 mg 03/11/21 09:09 Epinephrine 1 Mg/Ml Sdv IM ASDIRECTED PRN hypersensitivity reaction Famotidine 20 mg 03/11/21 09:09 Famotidine 20 Mg/2 Ml Sdv IVPUSH ASDIRECTED PRN hypersensitivity reaction Dextrose/Sodium Chloride 1,000 mls @ 100 mls/hr 03/11/21 09:30 Dextrose 5%-Normal Saline IV ASDIRECTED THUY Ketorolac Tromethamine 30 mg 03/11/21 09:45 Ketorolac 30 Mg/Ml Sdv IVPUSH ONETIME THUY Methylprednisolone Sodium Succinate 125 mg 03/11/21 09:09 Methylprednisolone Sodium Succinate 125 Mg/2 Ml Sdv IVPUSH ASDIRECTED PRN hypersensitivity reaction Sodium Chloride 30 ml 03/11/21 09:15 Sodium Chloride 0.9% 10 Ml Syringe FLUSH ASDIRECTED THUY Discontinued Medications Generic Name Dose Route Start Last Admin Trade Name Freq PRN Reason Stop Dose Admin Bamlanivimab 700 mg/ 160 mls @ 310 mls/hr 03/11/21 09:09 03/11/21 09:31 Etesevimab 1,400 mg/ Sodium IV 03/11/21 09:39 310 mls/hr Chloride ONETIME ONE Administration - Radiology Interpretation Free Text/Narrative:: 60-year-old male presents to the ED for evaluation of COVID-19 illness diagnosed 2 days ago. Symptoms started on the evening of March 08. He is there for about day 4-1/2 of illness. Harsh paroxysmal productive cough which is worsened over the last 24 hours. Generalized myalgia loss of appetite mild headache and sore throat and nasal congestion. Plan routine labs including D-dimer and LDH and troponin. ECG to be done. He was given the fact sheet for patients and caregivers for Regen/Cov monoclonal antibody therapy. He is aware that it is approved by an emergency use authorization process and has not been fully FDA reviewed or approved. He is aware of the potential risks from the therapy i ncluding allergic response and reported incidence is anaphylactic shock. At present there are no other potential treatment options for him. Offered opportunity ask questions and all questions were answered. He wishes to proceed with monoclonal antibody therapy for himself Mr. Galo Colin. - Re-Assessments/Exams Free Text/Narrative Re-Assessment/Exam: 03/11/21 10:58 chest x-ray reveals heart to be within normal limits as is the mediastinum. No acute infiltrates appreciated in the lung parenchyma with positive COVID-19 illness. 03/11/21 11:23 . White count is 5.34 and the auto differential reveals 43% neutrophils. Hemoglobin is 15.3 with hematocrit of 46.8. Platelet count is 169,000. D-dimer is 0.31. Sodium 140 with potassium of 3.5 chloride 105 with a bicarb of 27. Anion gap is 11.5. BUN is slightly elevated at 30 with a creatinine of 1.0 and a GFR greater than 60. Glucose was 209. Lactic acid 1.8 with a calcium of 8.9. Magnesium 1.8. Liver function is normal. LDH is 173. Troponin I is less than 0.017. C-reactive protein is 5.4. BNP is mildly elevated at 708. Total protein is 6.0 with an albumin fraction of 3.4. Patient has completed his Regeneron/Cov infusion without any issues. O2 sats remained 95 to 96% room air. He will therefore be discharged to home. He has a pulse oximeter at home. He will need to be quarantined until next Saturday, March 18. He will return to the ED if he has any further problems over the next few days. Departure - Departure Time of Disposition: 11:24 Disposition: Home, Self-Care 01 Condition: Fair Clinical Impression: COVID-19 determined by clinical diagnostic criteria - Discharge Information *PRESCRIPTION DRUG MONITORING PROGRAM REVIEWED*: Not Applicable *COPY OF PRESCRIPTION DRUG MONITORING REPORT IN PATIENT RAYRAY: Not Applicable Prescriptions: Hydrocodone/Chlorphen P-Stirex [Hydrocodone-Chlorphen ER Susp] 5 ml PO Q12H PRN #60 ml PRN Reason: Cough relief Instructions: 10 Things You Can Do to Manage Your COVID-19 Symptoms at Home - [facility] (11/25/2020), COVID-19 Frequently Asked Questions, COVID-19: Quarantine vs. Isolation - [facility] (04/28/2020) Referrals: PCP,None [Primary Care Provider] - Forms: ED Department Discharge Additional Instructions: Evaluation in the emergency room today in regards to positive COVID-19 illness with symptoms starting approximately 4-1/2 days ago. Chest x-ray does not reveal any pneumonia at this time. Lab test revealed mild inflammatory response. You were good candidate for monoclonal antibody infusion and you agreed to this transfusion which was carried out in the ED today. This gives you to antibodies to fight off the Covid virus immediately. Hopefully it will prevent you from developing Covid pneumonia and worsening illness. The illness tends to be worse from day 8-11 since onset. You would need to return to the hospital if you find your oxygen levels are continue to decline numbers particularly if they stay around 88% for 2 consecutive hours that would mean a return to the ED. At this time cough syrup as needed. Motrin 600 mg every 6 hours as needed to reduce pain fever and headache. Activity and diet as tolerated. Plenty of fluids such as Gatorade or Powerade which work well to maintain hydration is very similar to IV fluids. Sepsis Event Note (ED) - Focused Exam Vital Signs: Vital Signs Temp Pulse Resp BP Pulse Ox 03/11/21 08:56 36.1 C 66 20 134/83 97 - My Orders Last 24 Hours: My Active Orders 03/11/21 09:09 EPINEPHrine [Adrenalin] 0.3 mg IM ASDIRECTED PRN Famotidine [Pepcid] 20 mg IVPUSH ASDIRECTED PRN diphenhydrAMINE [Benadryl] 50 mg IVPUSH ASDIRECTED PRN methylPREDNISolone Sod Succ [Solu-MEDROL] 125 mg IVPUSH ASDIRECTED PRN 03/11/21 09:10 Vital Signs [RC] Q15M 03/11/21 09:15 Sodium Chloride 0.9% [Saline Flush] 30 ml FLUSH ASDIRECTED 03/11/21 09:24 Chest 1V Frontal [CR] Stat 03/11/21 09:30 Dextrose 5%-0.9% NaCl [Dextrose 5%-Normal Saline] 1,000 ml IV ASDIRECTED 03/11/21 09:45 Ketorolac [Toradol] 30 mg IVPUSH ONETIME - Assessment/Plan Last 24 Hours: My Active Orders 03/11/21 09:09 EPINEPHrine [Adrenalin] 0.3 mg IM ASDIRECTED PRN Famotidine [Pepcid] 20 mg IVPUSH ASDIRECTED PRN diphenhydrAMINE [Benadryl] 50 mg IVPUSH ASDIRECTED PRN methylPREDNISolone Sod Succ [Solu-MEDROL] 125 mg IVPUSH ASDIRECTED PRN 03/11/21 09:10 Vital Signs [RC] Q15M 03/11/21 09:15 Sodium Chloride 0.9% [Saline Flush] 30 ml FLUSH ASDIRECTED 03/11/21 09:24 Chest 1V Frontal [CR] Stat 03/11/21 09:30 Dextrose 5%-0.9% NaCl [Dextrose 5%-Normal Saline] 1,000 ml IV ASDIRECTED 03/11/21 09:45 Ketorolac [Toradol] 30 mg IVPUSH ONETIME
[2021-03-11] MEDS ORDERED: Dextrose 5%-0.9% NaCl 1,000 ML IV SCH (09:30)
[2021-03-11] MEDS ORDERED: Ketorolac 30 MG/ML SDV IVPUSH SCH (09:45)
[2021-03-11 12:20] VITALS: BP 145/65; PULSE 69
--- NOTE | 2021-03-12 07:44 | CR ---
Chest: Portable view of the chest was obtained. Comparison: Prior chest x-ray of 05/16/20. Heart size and mediastinum are normal. Lungs are clear with no acute parenchymal change. Prior cervical spine surgery is seen. Mild degenerative change is partially visualized within the thoracic spine. Impression: 1. Nothing acute is seen on portable chest x-ray. Diagnostic code #2
== END 2021-03-11 11:51 | disposition home or self-care (01) ==
LOC: JD.ED 08:47
DX: U07.1 COVID-19 (principal); I48.91 Unspecified atrial fibrillation; E78.00 Pure hypercholesterolemia, unspecified; I10 Essential (primary) hypertension; N40.0 Benign prostatic hyperplasia without lower urinary tract symptoms; M10.9 Gout, unspecified; E66.9 Obesity, unspecified; Z68.37 Body mass index [BMI] 37.0-37.9, adult; Z79.82 Long term (current) use of aspirin; Z79.899 Other long term (current) drug therapy
CPT/HCPCS: 36415; 71045; 80053; 83605; 83615; 83735; 83880; 84484; 85025; 85379; 86140; 93005; 99284; M0245; Q0245

== ENCOUNTER 2022-03-29 15:48 | Emergency (ER) | payer OTHER, BC ==
[2022-03-29] MEDS ORDERED: LORazepam 1 MG Tab PO ONE (16:07)
[2022-03-29 19:27] VITALS: BP 168/90; PULSE 87
== END 2022-03-29 18:50 | disposition home or self-care (01) ==
LOC: JD.ED 15:48
DX: S16.1XXA Strain of muscle, fascia and tendon at neck level, initial encounter (principal); E66.9 Obesity, unspecified; Z68.37 Body mass index [BMI] 37.0-37.9, adult; Z79.899 Other long term (current) drug therapy; Z87.891 Personal history of nicotine dependence; V49.40XA Driver injured in collision with unspecified motor vehicles in traffic accident, initial encounter; Y92.410 Unspecified street and highway as the place of occurrence of the external cause
CPT/HCPCS: 36415; 70450; 71045; 72125; 85025; 99285; A9270